=== PATIENT | male | born 1935 | race Caucasian/White ===

== ENCOUNTER 2017-06-15 11:07 | Inpatient (IN) ==
--- NOTE | 2017-06-15 11:23 | Emergency Department Note ---
Disposition Clinical Impression: COPD exacerbation, Wheezing, Elevated troponin, Hypoxia Dyspnea Qualifiers: Dyspnea type: unspecified Qualified Code(s): R06.00 - Dyspnea, unspecified Acute renal failure Qualifiers: Acute renal failure type: unspecified Qualified Code(s): N17.9 - Acute kidney failure, unspecified Disposition: Admitted As Inpatient Condition: Fair Referrals: Sujata Duffy DO [Primary Care Provider] - Forms: ED Satisfaction Letter Time of Disposition: 13:47 SOB HPI - General Chief Complaint: ED Shortness of Breath/Dyspnea Stated Complaint: SUNITA Time Seen by Provider: 06/15/17 11:12 Source: patient Mode of arrival: ambulatory Limitations: no limitations Nursing Notes Reviewed: Yes Vital Signs Reviewed: Yes - History of Present Illness Patient is an 82-year-old male with past medical history of COPD, CHF, A. fib, hypertension, hyperlipidemia. He presents today via EMS due to shortness of breath. He says he has felt short of breath for the past one to 2 days. He has required oxygen use at home to keep his saturation above 90%. He stated that at home, his oxygen saturation was 88%. EMS also confirmed that his oxygen saturation was 88% upon arrival when they were called for respiratory distress. The patient states that his shortness of breath is worse with exertion. Denies any chest pain. Denies any nausea, vomiting, sweating, abdominal pain. He does admit to cough above baseline, productive with yellow sputum. He was given one breathing treatment via EMS on the way in. He says that he feels like he is breathing somewhat better. He is currently requiring 2 L nasal cannula oxygen to maintain saturation in the 90s. - Related Data Home Medications Medication Instructions Recorded Confirmed Aspirin 81 mg PO DAILY 06/15/15 08/21/16 Clopidogrel [Plavix] 75 mg PO DAILY 06/15/15 08/21/16 Fluticasone Propionate Nasal 1 spray NS DAILY 06/15/15 08/21/16 [Flonase] Pantoprazole Sodium [Protonix] 40 mg PO DAILY 06/15/15 08/21/16 Spironolactone [Aldactone] 25 mg PO DAILY 06/15/15 08/21/16 Tiotropium [Spiriva] 18 mcg IH DAILY 06/15/15 08/21/16 Polyethylene Glycol 3350 [MiraLAX] 17 gm PO DAILY PRN 09/05/15 08/21/16 Atorvastatin Calcium [Lipitor] 80 mg PO DAILY 06/09/16 08/21/16 Fluticasone/Salmeterol [Advair Hfa 2 puff IH BID 06/09/16 08/21/16 230-21 Mcg Inhaler] Metoprolol Succinate 200 mg PO DAILY #0 06/09/16 08/21/16 Tamsulosin [Flomax] 0.4 mg PO BID 06/09/16 08/21/16 Guaifenesin [Mucinex] 600 mg PO Q12H PRN 06/10/16 08/21/16 Na Phos,M-B/Na Phos,Di-Ba [Fleet 230 ml RC Q48H PRN 06/27/16 08/21/16 Enema Extra] Previous Rx's Medication Instructions Recorded Multivit/Ca/Min/Fe/FA [Thera M 1 tab PO DAILY tablet 09/08/15 Plus] Albuterol Neb [Proventil Neb] 2.5 mg IH Q4HR 30 Days vial.neb 08/25/16 HYDROcodone/Acet 5/325 mg [[place] 1 tab PO Q6H PRN #15 tablet 08/25/16 5-325 mg] Isosorbide MONOnitrate (24 HR) 30 mg PO DAILY 30 Days tab.er.24h 08/25/16 [Imdur] Levofloxacin [Levaquin] 750 mg PO DAILY #6 tablet 08/25/16 Lisinopril 2.5 mg PO DAILY 30 Days tablet 08/25/16 Allergies Allergy/AdvReac Type Severity Reaction Status Date / Time No Known Allergies Allergy Verified 08/21/16 11:18 All systems ED: reviewed and negative except as stated. Constitutional: Denies: fever Cardiovascular: Denies: chest pain, palpitations Respiratory: Reports: cough, dyspnea, wheezes, sputum production Gastrointestinal: Denies: abdominal pain, nausea, vomiting, diarrhea Neurological: Denies: weakness, numbness, paresthesias Past Medical History - Past Medical History Attestation: Yes The following information was validated with the patient. Source: patient Medical history: Reports: asthma, atrial fibrillation, cardiomyopathy, CHF, COPD , coronary artery disease, GERD, GI bleed, hyperlipidemia, hypertension, myocardial infarction, valvular heart disease (S/P TAVR) Surgical history: Reports: angioplasty/stent, coronary bypass (CABG), pacemaker/ AICD (ICD), other (Right AKA 1993) Psychiatric history: Reports: no psych history - Social History Smoking Status: Former smoker Smokeless Tobacco Status: No Alcohol use: Reports: none Drug use: Reports: none Physical Exam - General Limitations: no limitations General appearance: alert, in no apparent distress - Head Head exam: atraumatic, normocephalic, normal inspection - Eye Eye exam: Present: normal appearance, PERRL, EOMI - ENT ENT exam: normal exam, normal oropharynx, mucous membranes moist - Neck Neck exam: Present: normal inspection, full ROM, trachea midline - Chest Chest inspection: Present: normal inspection, symmetric chest wall rise - Respiratory Respiratory exam: Present: wheezes (wheeze and crackles of bilateral LL) - Cardiovascular Cardiovascular exam: Present: regular rate, normal rhythm, normal heart sounds - Abdominal Exam Abdominal exam: Present: soft, Non-Tender. Absent: tenderness, distention, guarding, rebound, rigidity - Extremities Exam Extremities exam: Present: full ROM, other (right AKA amputation). Absent: tenderness, pedal edema - Neurological Exam Neurological exam: Present: alert, oriented X3 - Psychiatric Psychiatric exam: Present: normal affect, normal mood - Skin Skin exam: Present: warm, dry, intact, normal color Course Course Narrative: Vitals WNL on 2L NC oxygen. Mildly labored breathing, wheezes and crackles bilateral LL. Heart RRR. Abdomen soft, nontender. No edema of LLE. RLE AKA. WIll give the patient duonebs and solumedrol, will obtain EKG, CXR, trop, basic labs. 12:45 EKG showed paced rhythm with no acute ST changes. Troponin level was elevated at 0.04. However, this is the lowest that the patient has had in past several visits according to most recent records. No active chest pain. We will give patient aspirin, however, I do not think that any ACS is occurring at this time. CBC shows chronic anemia. His creatinine is 3.23, up from 0.99 in august last year. Mildly hyperkalemic at 5.5. Chest x-ray shows cardiomegaly but otherwise no other acute abnormalities. Patient typically feels improved after breathing treatments but is still having some wheezing and mild dyspnea. We will admit the patient for COPD exacerbation, acute renal failure, elevated trop. Will also give azithromycin for COPD exacerbation. Chest X-Ray 06/15/17 11:25 IMPRESSION: Cardiomegaly. Otherwise, no acute abnormalities are seen in the chest D/ / Kevin Mabry MD / Kevin Mabry MD Interpreting Provider: Kevin Mabry MD Vital Signs Temperature 98.3 F 06/15/17 11:09 Pulse Rate 65 06/15/17 11:09 Respiratory Rate 22 06/15/17 11:09 Blood Pressure 120/83 06/15/17 11:09 O2 Sat by Pulse Oximetry 96 06/15/17 11:09 Temperature 98.3 F 06/15/17 11:09 Pulse Rate 65 06/15/17 11:09 Respiratory Rate 20 06/15/17 11:55 Blood Pressure 120/83 06/15/17 11:09 O2 Sat by Pulse Oximetry 96 06/15/17 11:55 Oxygen Delivery Oxygen Delivery Nasal Cannula Shortness of Breath/Dyspnea - MDM Narrative Medical decision making narrative: EKG showed paced rhythm with no acute ST changes. Troponin level was elevated at 0.04. However, this is the lowest that the patient has had in past several visits according to most recent records. No active chest pain. We will give patient aspirin, however, I do not think that any ACS is occurring at this time. CBC shows chronic anemia. His creatinine is 3.23, up from 0.99 in august last year. WIll start 1L NS bolus. Mildly hyperkalemic at 5.5. Chest x-ray shows cardiomegaly but otherwise no other acute abnormalities. Patient typically feels improved after breathing treatments but is still having some wheezing and mild dyspnea. We will admit the patient for COPD exacerbation , acute renal failure, elevated trop. WIll also give azithromycin for COPD exac. - Medical Records Medical records reviewed: Yes I reviewed the patient's medical records. - Lab Data Lab results reviewed: Yes I reviewed the patient's lab results. Result diagrams: 06/15/17 11:33 06/15/17 11:33 Lab Results 06/15/17 06/15/17 06/15/17 Range/Units 11:33 11:33 11:33 WBC 9.2 (4.3-11.1) K/mcL RBC 3.42 L (4.19-5.50) M/mcL Hgb 9.8 L (12.9-16.9) g/dL Hct 31.9 L (37.5-50.1) % MCV 93.3 (83.0-100.0) fL MCH 28.7 (28.0-33.3) pg MCHC 30.7 L (31.6-35.5) g/dL RDW 14.0 (11.5-14.5) % Plt Count 187 (140-400) K/mcL MPV 9.4 (9.4-12.4) fL Immature Gran % 0.2 (0-4) % Seg Neutrophils % 77.2 % Lymphocytes % 14.5 % Monocytes % 5.8 % Eosinophils % 1.3 % Basophils % 1.0 % Neutrophils # 7.1 (1.6-8.9) K/mcL Lymphocytes # 1.3 (0.6-4.6) K/mcL Monocytes # 0.5 (0.0-1.3) K/mcL Eosinophils # 0.1 (0.0-0.6) K/mcL Basophils # 0.1 (0.0-0.2) K/mcL Sodium 136 (136-145) mEq/L Potassium 5.5 H (3.5-4.5) mEq/L Chloride 97 L (98-109) mEq/L Carbon Dioxide 30 H (19-29) mEq/L BUN 39 H (8-26) mg/dL Creatinine 3.23 H (0.72-1.25) mg/dL Est GFR ( Amer) 23 L (> 60) Est GFR (Non-Af Amer) 19 L (> 60) BUN/Creatinine Ratio 12 (6-26) Glucose 95 (70-99) mg/dL Calculated Osmolality 291 (280-300) Lactic Acid 1.6 (0.5-2.2) mmol/L Calcium 9.4 (8.6-10.8) mg/dL Troponin I (0-0.03) ng/mL B-Natriuretic Peptide (0-100) pg/mL 06/15/17 06/15/17 Range/Units 11:33 11:33 WBC (4.3-11.1) K/mcL RBC (4.19-5.50) M/mcL Hgb (12.9-16.9) g/dL Hct (37.5-50.1) % MCV (83.0-100.0) fL MCH (28.0-33.3) pg MCHC (31.6-35.5) g/dL RDW (11.5-14.5) % Plt Count (140-400) K/mcL MPV (9.4-12.4) fL Immature Gran % (0-4) % Seg Neutrophils % % Lymphocytes % % Monocytes % % Eosinophils % % Basophils % % Neutrophils # (1.6-8.9) K/mcL Lymphocytes # (0.6-4.6) K/mcL Monocytes # (0.0-1.3) K/mcL Eosinophils # (0.0-0.6) K/mcL Basophils # (0.0-0.2) K/mcL Sodium (136-145) mEq/L Potassium (3.5-4.5) mEq/L Chloride (98-109) mEq/L Carbon Dioxide (19-29) mEq/L BUN (8-26) mg/dL Creatinine (0.72-1.25) mg/dL Est GFR ( Amer) (> 60) Est GFR (Non-Af Amer) (> 60) BUN/Creatinine Ratio (6-26) Glucose (70-99) mg/dL Calculated Osmolality (280-300) Lactic Acid (0.5-2.2) mmol/L Calcium (8.6-10.8) mg/dL Troponin I 0.04 H* (0-0.03) ng/mL B-Natriuretic Peptide 296 H (0-100) pg/mL - Radiology Data Radiology results reviewed: Yes I reviewed the patient's radiology results. Chest X-Ray 06/15/17 11:25 IMPRESSION: Cardiomegaly. Otherwise, no acute abnormalities are seen in the chest D/ / Kevin Mabry MD / Kevin Mabry MD Interpreting Provider: Kevin Mabry MD - EKG Data EKG attestation: Yes I reviewed and interpreted this EKG. EKG results narrative: 06/15/2017 at 11:32. Paced rhythm. Rate 65. NC 232. QRS 155. QTc 470. No acute ST elevation or depression. Yan - Yan Situation: Demographics, MOA Background: Presenting Complaint, Relevant PMH, Meds, & Allergies Assessment: Vital Signs, Course and respsone to treatment, Exam Concerns, Patient/Family Expectation, Pertinant Lab Results Recommendation: Barrier(s) to disposition, Recommendation based on pending studies, treatments, or consults S.B.Trores Report Given to: Beny Heredia Repor Time: 13:46
[2017-06-15] MEDS ORDERED: Ipratropium/Albuterol Neb 3 ML IH ONE (11:25)
[2017-06-15] MEDS ORDERED: methylPREDNISolone 125 MG/2 ML VIAL IVP ONE (11:25)
[2017-06-15 11:39] LABS: Basophils # 0.1 K/mcL (0.0-0.2); Eosinophils # 0.1 K/mcL (0.0-0.6); Eosinophils % 1.3 %; Hematocrit 31.9 % (37.5-50.1); Hemoglobin 9.8 g/dL (12.9-16.9); Immature Granulocytes % 0.2 % (0-4); Lymphocytes # 1.3 K/mcL (0.6-4.6); Lymphocytes % 14.5 %; Mean Corpuscular HGB Conc 30.7 g/dL (31.6-35.5); Mean Corpuscular Hemoglobin 28.7 pg (28.0-33.3); Mean Corpuscular Volume 93.3 fL (83.0-100.0); Mean Platelet Volume 9.4 fL (9.4-12.4); Monocytes # 0.5 K/mcL (0.0-1.3); Monocytes % 5.8 %; Neutrophils # 7.1 K/mcL (1.6-8.9); Platelet Count 187 K/mcL (140-400); Red Blood Count 3.42 M/mcL (4.19-5.50); Segmented Neutrophils % 77.2 %
--- NOTE | 2017-06-15 11:46 | Emergency Department Note ---
START Narrative - START START: I examined this patient and my medical decision-making was reviewed with the Resident Physician. I agree with the documented findings, disposition and treatment plan as described except to the extent set forth below. 82-year-old male presents to the ER with shortness of breath. He does wear home oxygen. Does do home nebulizer treatments. States he is just been feeling more short of breath. Denies any chest pain to me. We will do a dyspnea and cardiac workup in the ER.
[2017-06-15 11:51] LABS: Calcium 9.4 mg/dL (8.6-10.8); Potassium 5.5 mEq/L (3.5-4.5)
[2017-06-15] MEDS ORDERED: 0.9 % Sodium Chloride 1,000 ML IVC ONE (12:50)
[2017-06-15] MEDS ORDERED: Azithromycin 500 MG in D5% in Water 250 ML IVPB ONE (12:50)
[2017-06-15] MEDS ORDERED: Aspirin 325 MG TABLET PO ONE (12:58)
[2017-06-15] MEDS ORDERED: 0.9 % Sodium Chloride 1,000 ML IVC SCH (14:15)
[2017-06-15] MEDS ORDERED: Naloxone 0.4 MG/ML INJ IVP PRN (14:15)
--- NOTE | 2017-06-15 14:46 | Internal Med History&Physical ---
<Swan,Florecita J - Last Filed: 06/15/17 15:58> Date of Encounter: 06/15/17 Time of Encounter: 14:45 Assessment and Plan (1) Pneumonia, organism unspecified Current visit: Yes Status: Acute Mr. Swartz is a 82 year old male with PMH COPD, CAD HTN, CHF, atrial fibrillation who presented to [facility] on 06/15/2017 with complaints of shortness of breath. He was found to have suspected pneumonia and worsening renal function, therefore, he was placed in observation status for IV ATB and further work-up and treatment. Pneumonia due to unspecified organism: suspected. Presented with worsening SOB for one week prior to presentation. CXR with cardiomegaly, otherwise non-acute. BNP 300, clinically appears to be pneumonia with rhonchorous lung sounds, productive cough and objective fevers. Change ATB to Levaquin. Sputum cx, urinary antigens, respiratory PCR pending. (2) Acute and chronic respiratory failure with hypoxia Current visit: No Status: Acute wears O2 at HS at home. Was hypoxic on arrival and now wearing oxygen around the clock at home. Secondary to pneumonia and underlying COPD. Treat underlying causes. Wean O2 to home dose as able. (3) Acute kidney injury superimposed on chronic kidney disease Current visit: No Status: Acute Cr 3.3; baseline appears to be 1.2-1.3. Holding home FRANCISCO, diuretics. Received IV fluids in the ED. Hold on further fluids at this time. UA, renal US pending (4) Atrial fibrillation Current visit: No Status: Chronic hx PAF. ED EKG with paced rhythm. Cont home amiodarone, no anticoagulation due to previous GI bleed. Qualifiers: Atrial fibrillation type: paroxysmal Qualified Code(s): I48.0 - Paroxysmal atrial fibrillation (5) Chronic systolic (congestive) heart failure Current visit: Yes Status: Acute per hx. 08/2016 with EF 35%. Does not appear overloaded on exam. BNP 300, CXR with cardiomegaly. Received IV fluids in ED, hold on further fluids. Monitor fluids status closely while holding laix. Repeat echo pending. (6) CAD (coronary artery disease) Current visit: No Status: Chronic Qualifiers: Coronary Disease-Associated Artery/Lesion type: unspecified vessel or lesion type [place] vs. transplanted heart: [place] heart Associated angina: without angina Qualified Code(s): I25.10 - Atherosclerotic heart disease of [place] coronary artery without angina pectoris (7) DVT prophylaxis Current visit: No Status: Acute heparin Internal Medicine - H&P: HPI Chief complaint: shortness of breath Admitted From: Home Plans for Post Hospital Care: Home History of present illness: Mr. Swartz is a 82 year old male with PMH COPD, CAD HTN, CHF, atrial fibrillation who presented to [facility] on 06/15/2017 with complaints of shortness of breath. He was found to have suspected pneumonia and worsening renal function, therefore, he was placed in observation status for IV ATB and further work-up and treatment. Information obtained from chart review and patient report. Patient says he has been more SOB over the last week or so. Says he can only walk a few steps before he has to stop and catch breath. Nothing makes breathing better or worse. He denies chest pain. Says he has been taking his Lasix at home. Past Med Surg Social Fam HX - Past Medical History Medical history: asthma, atrial fibrillation, cardiomyopathy, CHF, COPD, coronary artery disease, GERD, GI bleed, hyperlipidemia, hypertension, myocardial infarction, valvular heart disease (S/P TAVR) Psychiatric history: no psych history - Past Surgical History Surgical History: angioplasty/stent, coronary bypass (CABG), pacemaker/AICD (ICD ), other (Right AKA 1993) - Social History Smoking Status: Former smoker Smokeless Tobacco Status: No Alcohol use: none Drug use: none - Family History Mother Living Status: Hx Family Cardiac Disorders: Yes Hx Family Respiratory Disorders: No Hx Family Cancer: Yes (father Hodgkins) Internal Medicine - H&P: Meds Aspirin 81 mg PO DAILY 06/15/15 [History] Clopidogrel [Plavix] 75 mg PO DAILY 06/15/15 [History] Fluticasone Propionate Nasal [Flonase] 1 spray NS DAILY 06/15/15 [History] Pantoprazole Sodium [Protonix] 40 mg PO DAILY 06/15/15 [History] Spironolactone [Aldactone] 25 mg PO DAILY 06/15/15 [History] Tiotropium [Spiriva] 18 mcg IH DAILY 06/15/15 [History] Polyethylene Glycol 3350 [MiraLAX] 17 gm PO DAILY PRN 09/05/15 [History] Multivit/Ca/Min/Fe/FA [Thera M Plus] 1 tab PO DAILY tablet 09/08/15 [Rx] Atorvastatin Calcium [Lipitor] 80 mg PO DAILY 06/09/16 [History] Fluticasone/Salmeterol [Advair Hfa 230-21 Mcg Inhaler] 2 puff IH BID 06/09/16 [ History] Metoprolol Succinate 200 mg PO DAILY #0 06/09/16 [History] Tamsulosin [Flomax] 0.4 mg PO BID 06/09/16 [History] Na Phos,M-B/Na Phos,Di-Ba [Fleet Enema Extra] 230 ml RC Q48H PRN 06/27/16 [ History] Albuterol Neb [Proventil Neb] 2.5 mg IH Q4HR 30 Days vial.neb 08/25/16 [Rx] Amiodarone [Cordarone] 200 mg PO 06/15/17 [History] Budesonide/Formoterol 80/4.5 [Symbicort 80/4.5] 0 gm IH BIDR 06/15/17 [History] Furosemide [Lasix] 40 mg PO BID 06/15/17 [History] Isosorbide MONOnitrate (24 HR) [Imdur] 60 mg PO DAILY 06/15/17 [History] Lisinopril [Zestril] 10 mg PO DAILY 06/15/17 [History] Meloxicam [Mobic] 7.5 mg PO DAILY 06/15/17 [History] Potassium Chloride [K-Tab ER] 20 meq PO DAILY 06/15/17 [History] 3 Allergy/AdvReac Type Severity Reaction Status Date / Time No Known Allergies Allergy Verified 08/21/16 11:18 All Systems PM: A 10-system review of systems was performed and is negative for pertinent findings except as documented above in the HPI. - Constitutional Constitutional: weakness, no chills, no fever(s), no night sweats - EENT Eyes: no change in vision, no discharge, no pain, no photophobia Ears: no ear discharge, no ear pain, no tinnitus Nose, mouth and throat: no dysphagia, no nasal discharge, no neck pain, no sore throat - Cardiovascular Cardiovascular ROS IM: dyspnea, dyspnea on exertion, orthopnea, no chest pain, no diaphoresis, no lightheadedness, no palpitations, no syncope - Respiratory Respiratory: cough, dyspnea, wheezing, no excessive phlegm production - Gastrointestinal Gastrointestinal: no abdominal pain, no diarrhea, no hematemesis, no hematochezia, no melena, no nausea, no vomiting - Musculoskeletal Musculoskeletal ROS IM: no numbness, no tingling - Integumentary Integumentary IM: no rash, no unusual bruising - Neurological Neurological ROS: no confusion, no convulsions, no focal weakness, no numbness, no tingling, no tremor(s) - Hematologic/Lymphatic Hematologic/Lymphatic: no easy bruising - Constitutional Vitals: Temp Pulse Resp BP Pulse Ox 0 F L 68 18 124/62 96 06/15/17 14:36 06/15/17 13:54 06/15/17 14:36 06/15/17 14:36 06/15/17 13:54 General appearance: Present: A&O X 3, obese - Head Head exam: Present: atraumatic, normocephalic - Eye Eye exam: Present: PERRL, conjuntiva pink, sclera anicteric Pupils: Present: PERRL - Neck Neck exam general surgery: Present: supple, trachea midline. Absent: lymphadenopathy - Respiratory Respiratory exam: Present: rales, rhonchi. Absent: accessory muscle use, wheezes - Cardiovascular Cardiovascular exam: Present: irregular rhythm, RRR, +S1, +S2. Absent: diastolic murmur, gallop, rubs, systolic murmur - GI/Abdominal GI/Abdominal exam: Present: normal bowel sounds, soft, no peritoneal signs. Absent: distended, tenderness - Extremities Exam Extremities exam: Present: warm, radial pulses palpable and symmetrical. Absent : calf tenderness, cyanotic, pedal edema - Neurological Exam Neurological exam: Present: CN II-XII intact, oriented X3, no focal deficits. Absent: pronater drift, facial droop, speech deficit - Skin Skin exam: Present: dry, intact Internal Med - H&P Results - Labs CBC & Chem 7: 06/15/17 11:33 06/15/17 11:33 <Maxwell Cunningham - Last Filed: 06/15/17 19:51> Date of Encounter: 06/15/17 Internal Medicine - H&P: HPI History of present illness: Mr. Swartz is a 82 year old male All Systems PM: A 10-system review of systems was performed and is negative for pertinent findings except as documented above in the HPI. - Constitutional Vitals: Temp Pulse Resp BP Pulse Ox 98.1 F 67 16 126/64 95 06/15/17 18:47 06/15/17 18:47 06/15/17 18:47 06/15/17 18:47 06/15/17 18:47 Internal Med - H&P Results - Labs CBC & Chem 7: 06/15/17 11:33 06/15/17 11:33 - Attending Attestation I independently obtained history and examined this patient and my medical decision-making was reviewed with the nurse practitioner. I agree with the documented findings, disposition and treatment plan as described. My findings are summarized below: Is in no acute distress awake alert and oriented. Heart is regular, lung exam reveals bilateral expiratory wheezes. Extremity exam with right [id number] amputation. Plan: We will treat him with IV fluids, IV Levaquin for pneumonia intravenous steroids and inhaled bronchodilators for COPD exacerbation. He is severely short of breath with minimal exertion. He also has signs of acute renal failure with hyperkalemia and required treatment in the hospital for at least 3 days.
[2017-06-15] MEDS ORDERED: Levofloxacin 750 MG/150 ML 750 MG/150 ML BAG IVPB SCH (15:00)
[2017-06-15 15:15] LABS: Bilirubin,Urine Negative (Negative); Blood,Urine Negative (Negative); Clarity,Urine Clear (Clear); Color,Urine Yellow (Yellow); Glucose,Urine (UA) Normal (Normal); Ketones,Urine Negative (Negative); Leukocyte Esterase,Urine Negative (Negative); Nitrite,Urine Negative (Negative); Protein,Urine Negative (Neg-Trace); Specific Gravity,Urine 1.012 (1.010-1.025); Urobilinogen,Urine Normal (Normal)
[2017-06-15] MEDS ORDERED: Levofloxacin 750 MG/150 ML 750 MG/150 ML BAG IVPB ONE (15:45)
[2017-06-15] MEDS: MethylPREDNISolone 40 MG/ML VIAL IVP SCH (16:25)
[2017-06-15] MEDS ORDERED: Perflutren Lipid Microsphere 1.3 ML in 0.9 % Sodium Chloride 8.7 ML IVP ONE (16:35)
[2017-06-15] MEDS ORDERED: Acetaminophen 325 MG TABLET PO ONE (17:01)
--- NOTE | 2017-06-15 17:10 | Electrocardiograph Report ---
[place] [id number] Test Date: 2017-06-15 Pat Name: Edilson Swartz Department: 102 Room: 3B Gender: M [place] [employer]: Am : 1935 Requested By: Neeraj Gupta Order Number: [id number] Reading MD: Karlee Cummins Measurements Intervals [place] Rate: 65 P: -32 MO: 232 QRS: -28 QRSD: 155 T: 129 QT: 458 QTc: 470 Interpretive Statements ELECTRONIC VENTRICULAR PACEMAKER UNCLEAR UNDERLYING RHYTHM Electronically Signed On 06-15-2017 17:08:27 EDT by Karlee Cummins
[2017-06-15] MEDS ORDERED: *HR* Heparin 5,000 UNIT/ML VIAL SQ SCH (22:00)
[2017-06-16] MEDS: MethylPREDNISolone 40 MG/ML VIAL IVP SCH ×3 (00:41→13:09)
[2017-06-16] MEDS: *HR* Heparin 5,000 UNIT/ML VIAL SQ SCH ×2 (06:23→17:17)
[2017-06-16 06:42] LABS: Albumin 3.7 g/dL (3.5-5.0); Albumin/Globulin Ratio 1.2 (1.1-2.2); Bilirubin,Total 0.8 mg/dL (0.2-1.2); Calcium 9.6 mg/dL (8.6-10.8); Globulin 3.2 g/dL (2.4-3.5); Potassium 5.9 mEq/L (3.5-4.5); Total Protein 6.9 g/dL (6.0-8.3)
[2017-06-16 06:57] LABS: Hematocrit 30.1 % (37.5-50.1); Hemoglobin 9.6 g/dL (12.9-16.9); Mean Corpuscular HGB Conc 31.9 g/dL (31.6-35.5); Mean Corpuscular Hemoglobin 29.5 pg (28.0-33.3); Mean Corpuscular Volume 92.6 fL (83.0-100.0); Mean Platelet Volume 10.3 fL (9.4-12.4); Platelet Count 167 K/mcL (140-400); Red Blood Count 3.25 M/mcL (4.19-5.50); Red Cell Distribution Width 13.9 % (11.5-14.5)
[2017-06-16] MEDS: Isosorbide MONOnitrate (24 HR) 60 MG TAB.ER.24H PO SCH (08:10)
[2017-06-16] MEDS: Metoprolol XL (24 HR) Succ 50 MG TAB.ER.24H PO SCH (08:10)
[2017-06-16] MEDS: Aspirin 81 MG TAB.CHEW PO SCH (08:10)
[2017-06-16] MEDS: Tiotropium 18 MCG inhalation IH SCH (10:48)
--- NOTE | 2017-06-16 14:57 | Internal Med Progress Note ---
Date of Encounter: 06/16/17 Time of Encounter: 09:00 - Assessment and plan (1) Pneumonia, organism unspecified Current Visit: Yes Status: Acute Assessment and plan: On levofloxacin. Moderate risk for complications. Continue O2 supplementation. Sputum culture ordered but patient is not making much sputum at this time. (2) Acute and chronic respiratory failure with hypoxia Current Visit: Yes Status: Acute Assessment and plan: Due to pneumonia. Continue O2 supplementation and wean FiO2 as tolerated. Currently on 2 L nasal cannula. (3) Acute kidney injury superimposed on chronic kidney disease Current Visit: Yes Status: Acute Assessment and plan: Creatinine slightly improved. BUN remains elevated. Renal ultrasound is unremarkable. No hydronephrosis noted. We will continue to hold diuretics. Continue to monitor renal function closely. Continue gentle hydration. (4) Atrial fibrillation Current Visit: Yes Status: Chronic Assessment and plan: Rate controlled. Patient is not on long-term anticoagulation due to previous GI bleed. He is on 81 mg aspirin. Qualifiers: Atrial fibrillation type: paroxysmal Qualified Code(s): I48.0 - Paroxysmal atrial fibrillation (5) CAD (coronary artery disease) Current Visit: Yes Status: Chronic Assessment and plan: No chest pain. Continue aspirin and statin and Plavix. Qualifiers: Coronary Disease-Associated Artery/Lesion type: unspecified vessel or lesion type [place] vs. transplanted heart: [place] heart Associated angina: without angina Qualified Code(s): I25.10 - Atherosclerotic heart disease of [place] coronary artery without angina pectoris (6) Chronic systolic (congestive) heart failure Current Visit: Yes Status: Chronic Assessment and plan: 2-D echo done today shows EF of 30% with severe LV diastolic dysfunction and global hypokinesis with mild left ventricular diastolic dysfunction. Currently Lasix is on hold due to worsening renal function. We will may resume once renal function improves. Patient does not appear to be decompensated at this time (7) COPD (chronic obstructive pulmonary disease) Current Visit: Yes Status: Chronic Assessment and plan: Not tender acute exacerbation. Will place patient on bronchodilators as needed. Qualifiers: COPD type: emphysema Emphysema type: unspecified Qualified Code(s): J43.9 - Emphysema, unspecified (8) DVT prophylaxis Current Visit: No Status: Acute Assessment and plan: With subcutaneous heparin - Subjective Interval history: Patient is awake and alert. Feels better compared to yesterday. Still has shortness of breath. He is able to ambulate to and fro from bathroom with slight difficulty. Denies any fever or chills. No chest pain. - Constitutional Vitals: Temp Pulse Resp BP Pulse Ox 98.1 F 66 17 126/59 97 06/16/17 11:35 06/16/17 11:35 06/16/17 11:35 06/16/17 11:35 06/16/17 11:35 General appearance: Present: cooperative, A&O X 3, obese, answers questions appropriately - Respiratory Respiratory exam: Present: CTAB. Absent: accessory muscle use, rales, rhonchi, wheezes - Cardiovascular Cardiovascular exam: Present: RRR, +S1, +S2. Absent: diastolic murmur, gallop, rubs, systolic murmur - GI/Abdominal GI/Abdominal exam: Present: normal bowel sounds, soft, no peritoneal signs. Absent: distended, tenderness - Extremities Exam Extremities exam: Present: warm, radial pulses palpable and symmetrical. Absent : calf tenderness, cyanotic, pedal edema - Neurological Exam Neurological exam: Present: alert, oriented X3, no focal deficits. Absent: facial droop, speech deficit Internal Medicine: Result - Labs CBC & Chem 7: 06/16/17 05:44 06/16/17 05:44 Labs: Short CBC 06/16/17 Range/Units 05:44 WBC 8.9 (4.3-11.1) K/mcL Hgb 9.6 L (12.9-16.9) g/dL Hct 30.1 L (37.5-50.1) % Plt Count 167 (140-400) K/mcL BMP 06/16/17 05:44 Sodium 134 L Potassium 5.9 H Chloride 99 Carbon Dioxide 26 BUN 44 H Creatinine 3.19 H Glucose 120 H Calcium 9.6 Liver Function 06/16/17 Range/Units 05:44 Total Bilirubin 0.8 (0.2-1.2) mg/dL AST 17 (5-34) Units/L ALT 18 (0-55) Units/L Alkaline Phosphatase 62 (38-126) Units/L Albumin 3.7 (3.5-5.0) g/dL Consult Discharge Plan - Plan Referrals: Sujata Duffy DO [Primary Care Provider] -
[2017-06-16] MEDS ORDERED: Ipratropium/Albuterol Neb 3 ML IH PRN (15:05)
[2017-06-16] MEDS ORDERED: 0.9 % Sodium Chloride 1,000 ML IVC SCH (15:15)
[2017-06-16] MEDS: *HR* Amiodarone 200 MG TABLET PO SCH (15:57)
--- NOTE | 2017-06-16 23:27 | Event Note ---
Date of Encounter: 06/16/17 Time of Encounter: 23:05 Rapid response called overhead because patient fell out of bed and was found sitting on the floor. He is A&O to person, place and year and reports trying to use his walker to get to the bathroom. Patient has prior right AKA. He does not recall hitting his head or loosing consciousness. Patient was sitting on the floor at the foot of the bed and there is a small pool of blood on the floor where his IV got ripped out when he fell. Patient was transferred from the floor back to his bed with assistance. On exam, patient has no further visible bleeding or any skin lacerations, head is normocephalic/ atraumatic, neck is non -tender, and he has no visible injuries to remaining upper extremities, left foot, or right lower extremity stump. Will order CT brain to r/o intracranial bleed s/p fall, obtain new IV access, and move patient closer to the nurses station for closer monitoring. Patient educated not to get out of bed without assistance.
[2017-06-17 05:40] LABS: Basophils % 0.1 %; Hematocrit 29.3 % (37.5-50.1); Hemoglobin 9.2 g/dL (12.9-16.9); Immature Granulocytes % 0.6 % (0-4); Lymphocytes # 1.1 K/mcL (0.6-4.6); Lymphocytes % 10.4 %; Mean Corpuscular HGB Conc 31.4 g/dL (31.6-35.5); Mean Corpuscular Hemoglobin 29.2 pg (28.0-33.3); Mean Platelet Volume 10.2 fL (9.4-12.4); Monocytes # 0.7 K/mcL (0.0-1.3); Monocytes % 6.3 %; Neutrophils # 8.9 K/mcL (1.6-8.9); Platelet Count 184 K/mcL (140-400); Red Blood Count 3.15 M/mcL (4.19-5.50); Red Cell Distribution Width 13.9 % (11.5-14.5); Segmented Neutrophils % 82.6 %
[2017-06-17] MEDS: *HR* Heparin 5,000 UNIT/ML VIAL SQ SCH ×2 (05:52→17:33)
[2017-06-17 05:55] LABS: Albumin 3.6 g/dL (3.5-5.0); Albumin/Globulin Ratio 1.2 (1.1-2.2); Bilirubin,Total 0.5 mg/dL (0.2-1.2); Calcium 9.2 mg/dL (8.6-10.8); Globulin 3.1 g/dL (2.4-3.5); Potassium 5.6 mEq/L (3.5-4.5); Total Protein 6.7 g/dL (6.0-8.3)
[2017-06-17] MEDS: Tiotropium 18 MCG inhalation IH SCH (07:57)
[2017-06-17] MEDS: Metoprolol XL (24 HR) Succ 50 MG TAB.ER.24H PO SCH (09:19)
[2017-06-17] MEDS: Isosorbide MONOnitrate (24 HR) 60 MG TAB.ER.24H PO SCH (09:28)
[2017-06-17] MEDS: Aspirin 81 MG TAB.CHEW PO SCH (09:28)
[2017-06-17] MEDS: *HR* Amiodarone 200 MG TABLET PO SCH (09:28)
--- NOTE | 2017-06-17 13:34 | Nephrology Consult Note ---
Date of Encounter: 06/17/17 Time of Encounter: 13:10 Assessment and Plan (1) Acute kidney injury Current Visit: No Status: Resolved AYE superimposed on CKD. Baseline creat 1.2-1.4 in setting of diuretics, possible NSAID;Meloxicam. Hyperkalemia 5.6. Recommend gentle hydration 0.9NS @ 75 cc/hr. Acute on chronic respiratory failure, on Levaquin. Renal US and UA negative. I&O, avoid nephrotoxins. Will continue to monitor. History of Present Illness - Reason for Consult Acute Kidney Injury - History of Present Illness Mr. Swartz is a 82 year old male who presented to ER on Jun 15 with shortness of breath who uses home oxygen and does home nebulizer treatments. Other PMH- COPD, CHF, A. fib, hypertension, hyperlipidemia. 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 CXR with cardiomegaly otherwise no acute process, however appeared clinically to have pneumonia with rhonchorous lung sounds and productive cough. Placed on Levaquin. Creat 3.3, held FRANCISCO and diuretics. K+ 5.5 home MAR Aldactone, FRANCISCO and K supplement, all stopped. It is noted on home MAR Meloxicam, however patient denies taking. Patient denies prior renal insufficiency, however prior labs show baseline creat 1.2-1.4 back to Oct 2014. Renal US and UA negative. Past Med Surg Social Fam HX - Past Medical History Medical history: asthma, atrial fibrillation, cardiomyopathy, CHF, COPD, coronary artery disease, GERD, GI bleed, hyperlipidemia, hypertension, myocardial infarction, valvular heart disease (S/P TAVR) Psychiatric history: no psych history - Past Surgical History Surgical History: angioplasty/stent, coronary bypass (CABG), pacemaker/AICD (ICD ), other (Right AKA 1993) - Social History Smoking Status: Former smoker Smokeless Tobacco Status: No Alcohol use: none Drug use: none - Family History Mother Living Status: Hx Family Cardiac Disorders: Yes Hx Family Respiratory Disorders: No Hx Family Cancer: Yes (father Hodgkins) Medications and Allergies Aspirin 81 mg PO DAILY 06/15/15 [History] Clopidogrel [Plavix] 75 mg PO DAILY 06/15/15 [History] Fluticasone Propionate Nasal [Flonase] 1 spray NS DAILY 06/15/15 [History] Pantoprazole Sodium [Protonix] 40 mg PO DAILY 06/15/15 [History] Spironolactone [Aldactone] 25 mg PO DAILY 06/15/15 [History] Tiotropium [Spiriva] 18 mcg IH DAILY 06/15/15 [History] Polyethylene Glycol 3350 [MiraLAX] 17 gm PO DAILY PRN 09/05/15 [History] Multivit/Ca/Min/Fe/FA [Thera M Plus] 1 tab PO DAILY tablet 09/08/15 [Rx] Atorvastatin Calcium [Lipitor] 80 mg PO DAILY 06/09/16 [History] Fluticasone/Salmeterol [Advair Hfa 230-21 Mcg Inhaler] 2 puff IH BID 06/09/16 [ History] Metoprolol Succinate 200 mg PO DAILY #0 06/09/16 [History] Tamsulosin [Flomax] 0.4 mg PO BID 06/09/16 [History] Na Phos,M-B/Na Phos,Di-Ba [Fleet Enema Extra] 230 ml RC Q48H PRN 06/27/16 [ History] Albuterol Neb [Proventil Neb] 2.5 mg IH Q4HR 30 Days vial.neb 08/25/16 [Rx] Amiodarone [Cordarone] 200 mg PO 06/15/17 [History] Budesonide/Formoterol 80/4.5 [Symbicort 80/4.5] 0 gm IH BIDR 06/15/17 [History] Furosemide [Lasix] 40 mg PO BID 06/15/17 [History] Isosorbide MONOnitrate (24 HR) [Imdur] 60 mg PO DAILY 06/15/17 [History] Lisinopril [Zestril] 10 mg PO DAILY 06/15/17 [History] Meloxicam [Mobic] 7.5 mg PO DAILY 06/15/17 [History] Potassium Chloride [K-Tab ER] 20 meq PO DAILY 06/15/17 [History] 3 Allergy/AdvReac Type Severity Reaction Status Date / Time No Known Allergies Allergy Verified 08/21/16 11:18 Review of Systems All Systems: reviewed and no additional remarkable complaints except as stated Exam - Vital Signs Vital signs: Initial Vital Signs Temp Pulse Resp BP Pulse Ox 98.3 F 65 22 120/83 96 06/15/17 11:09 06/15/17 11:09 06/15/17 11:09 06/15/17 11:09 06/15/17 11:09 Vital Signs - Last 8 Hours Temp Pulse Resp BP Pulse Ox 06/17/17 11:58 98.2 F 64 16 120/51 94 06/17/17 07:34 98.1 F 59 16 126/67 98 Intake and Output 06/16/17 06/17/17 06/17/17 23:59 07:59 15:59 Intake Total 360 / 360 Output Total 100 / 100 400 / 400 200 / 200 Balance -100 / -100 -400 / -400 160 / 160 Intake: Oral 360 / 360 Output: Urine 100 / 100 400 / 400 200 / 200 Other: Meal Breakfast Percent of Meal Consumed 100% Stool Size Moderate Stool Consistency soft Stool Color Brown # Bowel Movements 1 Weight 84.538 kg Patient Weight 06/17/17 23:59 Weight 84.538 kg - General Appearance General appearance: well-developed, well-nourished, appears started age, obese EENT: mucous membranes moist Neck: no JVD Respiratory: clear Additional Comments: diminished throughout Cardiology: no edema, irregular rhythm Additional Comments: right AKA Gastrointestinal: normoactive bowel sounds, no tenderness Integumentary: warm and dry Neurologic: alert and oriented x3 Psychiatric: mood/affect appropriate, cooperative Results - Lab Results 06/17/17 05:07 06/17/17 05:07 Most recent lab results Calcium 9.2 mg/dL (8.6-10.8) 06/17/17 05:07 Consult Discharge Plan - Plan Referrals: Sujata Duffy DO [Primary Care Provider] -
[2017-06-17] MEDS ORDERED: Levofloxacin 500 MG/100 ML 500 MG/100 ML BAG IVPB SCH (15:00)
--- NOTE | 2017-06-17 15:22 | Internal Med Progress Note ---
Date of Encounter: 06/17/17 Time of Encounter: 08:40 - Assessment and plan (1) Pneumonia, organism unspecified Current Visit: Yes Status: Acute Assessment and plan: Continue levofloxacin. Clinically, patient is getting better. On 2 L O2 supplementation which is his baseline. Cultures have been negative. (2) Acute and chronic respiratory failure with hypoxia Current Visit: Yes Status: Acute Assessment and plan: Continue O2 supplementation. (3) Acute kidney injury superimposed on chronic kidney disease Current Visit: Yes Status: Acute Assessment and plan: BUN continues to rise. Creatinine stable. Remains hyperkalemic. We will consult nephrology for their recommendations. (4) Atrial fibrillation Current Visit: Yes Status: Chronic Assessment and plan: Rate controlled. Not on anticoagulation due to prior GI bleed Qualifiers: Atrial fibrillation type: paroxysmal Qualified Code(s): I48.0 - Paroxysmal atrial fibrillation (5) CAD (coronary artery disease) Current Visit: Yes Status: Chronic Assessment and plan: No chest pain. Continue aspirin and statin and Plavix Qualifiers: Coronary Disease-Associated Artery/Lesion type: unspecified vessel or lesion type [place] vs. transplanted heart: [place] heart Associated angina: without angina Qualified Code(s): I25.10 - Atherosclerotic heart disease of [place] coronary artery without angina pectoris (6) Chronic systolic (congestive) heart failure Current Visit: Yes Status: Chronic Assessment and plan: No symptoms of acute heart failure. Lasix is currently on hold due to abnormal renal function. (7) COPD (chronic obstructive pulmonary disease) Current Visit: Yes Status: Chronic Assessment and plan: Continue bronchodilators as needed. Qualifiers: COPD type: emphysema Emphysema type: unspecified Qualified Code(s): J43.9 - Emphysema, unspecified (8) DVT prophylaxis Current Visit: No Status: Acute Assessment and plan: With subcutaneous heparin - Subjective Interval history: Patient is currently sitting up in bed. He is awake and alert. Tolerating breakfast. Patient had a fall last night after he tried to climb out from bed. This was not witnessed. No open wounds identified. CT scan of the head was done which did not show any acute bleed. He is presently doing much better. Denies any other complaints at this time. Denies any pain anywhere. No significant shortness of breath. - Constitutional Vitals: Temp Pulse Resp BP Pulse Ox 97.7 F 62 16 116/49 98 06/17/17 15:13 06/17/17 15:13 06/17/17 15:13 06/17/17 15:13 06/17/17 15:13 General appearance: Present: cooperative, A&O X 3, obese, answers questions appropriately - Neck Neck exam general surgery: Present: supple, trachea midline. Absent: lymphadenopathy - Respiratory Respiratory exam: Present: prolonged expiratory phase. Absent: accessory muscle use, rales, rhonchi, wheezes - Cardiovascular Cardiovascular exam: Present: RRR, +S1, +S2. Absent: diastolic murmur, gallop, rubs, systolic murmur - GI/Abdominal GI/Abdominal exam: Present: normal bowel sounds, soft, no peritoneal signs. Absent: distended, tenderness - Extremities Exam Extremities exam: Present: warm, radial pulses palpable and symmetrical. Absent : calf tenderness, cyanotic, pedal edema Additional comments: Status post right AKA - Neurological Exam Neurological exam: Present: oriented X3, no focal deficits. Absent: facial droop, speech deficit Internal Medicine: Result - Labs CBC & Chem 7: 06/17/17 05:07 06/17/17 05:07 Labs: Short CBC 06/17/17 Range/Units 05:07 WBC 10.8 (4.3-11.1) K/mcL Hgb 9.2 L (12.9-16.9) g/dL Hct 29.3 L (37.5-50.1) % Plt Count 184 (140-400) K/mcL Neutrophils # 8.9 (1.6-8.9) K/mcL BMP 06/16/17 06/17/17 15:14 05:07 Sodium 133 L Potassium 5.9 H 5.6 H Chloride 100 Carbon Dioxide 25 BUN 58 H D Creatinine 3.19 H Glucose 95 Calcium 9.2 Liver Function 06/17/17 Range/Units 05:07 Total Bilirubin 0.5 (0.2-1.2) mg/dL AST 20 (5-34) Units/L ALT 21 (0-55) Units/L Alkaline Phosphatase 57 (38-126) Units/L Albumin 3.6 (3.5-5.0) g/dL - Impressions Impressions Head CT 06/16/17 23:15 IMPRESSION: 1. No acute intracranial abnormality. 2. 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 3. 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 D/ / Solis Pathak MD / Solis Pathak MD Interpreting Provider: Solis Pathak MD Consult Discharge Plan - Plan Referrals: Sujata Duffy DO [Primary Care Provider] -
[2017-06-17] MEDS ORDERED: Acetaminophen 325 MG TABLET PO PRN (22:31)
[2017-06-18 05:06] LABS: Basophils % 0.4 %; Eosinophils # 0.1 K/mcL (0.0-0.6); Eosinophils % 1.4 %; Hematocrit 30.6 % (37.5-50.1); Hemoglobin 9.4 g/dL (12.9-16.9); Immature Granulocytes % 0.6 % (0-4); Lymphocytes # 2.3 K/mcL (0.6-4.6); Lymphocytes % 23.2 %; Mean Corpuscular HGB Conc 30.7 g/dL (31.6-35.5); Mean Corpuscular Hemoglobin 28.9 pg (28.0-33.3); Mean Corpuscular Volume 94.2 fL (83.0-100.0); Mean Platelet Volume 10.1 fL (9.4-12.4); Monocytes # 0.7 K/mcL (0.0-1.3); Monocytes % 7.2 %; Neutrophils # 6.6 K/mcL (1.6-8.9); Platelet Count 168 K/mcL (140-400); Red Blood Count 3.25 M/mcL (4.19-5.50); Red Cell Distribution Width 13.9 % (11.5-14.5); Segmented Neutrophils % 67.2 %
[2017-06-18 05:22] LABS: Albumin 3.5 g/dL (3.5-5.0); Albumin/Globulin Ratio 1.3 (1.1-2.2); Bilirubin,Total 0.5 mg/dL (0.2-1.2); Calcium 8.6 mg/dL (8.6-10.8); Globulin 2.8 g/dL (2.4-3.5); Potassium 5.3 mEq/L (3.5-4.5); Total Protein 6.3 g/dL (6.0-8.3)
[2017-06-18] MEDS: *HR* Heparin 5,000 UNIT/ML VIAL SQ SCH (06:24)
[2017-06-18 07:44] LABS: Adenovirus Not Detected (Not Detect); Bordetella Pertussis Not Detected (Not Detect); Chlamydophila pneumoniae Not Detected (Not Detect); Coronavirus 229E Not Detected (Not Detect); Coronavirus HKU1 Not Detected (Not Detect); Coronavirus NL63 Not Detected (Not Detect); Coronavirus OC43 Not Detected (Not Detect); Human Metapneumovirus Not Detected (Not Detect); Human Rhinovirus/Enterovirus Not Detected (Not Detect); Influenza A Subtype 2009 H1 Not Detected (Not Detect); Influenza A Untypeable Not Detected (Not Detect); Influenza B Not Detected (Not Detect); Mycoplasma pneumoniae Not Detected (Not Detect); Parainfluenza Virus 1 Not Detected (Not Detect); Parainfluenza Virus 2 Not Detected (Not Detect); Parainfluenza Virus 3 Not Detected (Not Detect); Parainfluenza Virus 4 Not Detected (Not Detect); Respiratory Syncytial Virus Not Detected (Not Detect)
[2017-06-18] MEDS: Tiotropium 18 MCG inhalation IH SCH (08:23)
[2017-06-18] MEDS: *HR* Amiodarone 200 MG TABLET PO SCH (10:29)
[2017-06-18] MEDS: Metoprolol XL (24 HR) Succ 50 MG TAB.ER.24H PO SCH (10:29)
[2017-06-18] MEDS: Isosorbide MONOnitrate (24 HR) 60 MG TAB.ER.24H PO SCH (10:29)
[2017-06-18] MEDS: Aspirin 81 MG TAB.CHEW PO SCH (10:29)
[2017-06-18] MEDS: 0.9 % Sodium Chloride 1,000 ML IVC SCH ×2 (10:51→10:52)
--- NOTE | 2017-06-18 11:25 | Nephrology Progress Note ---
Date of Encounter: 06/18/17 Time of Encounter: 10:45 - Assessment and Plan (1) Acute kidney injury Current Visit: No Status: Resolved AYE superimposed on CKD. Baseline creat 1.2-1.4 in setting of diuretics, and chronic NSAID;Meloxicam. Renal fct plateued, creat 3.17. Documented urine output 825cc. Hyperkalemia, K 5.3 today. Recommend gentle hydration 0.9NS @ 75 cc/hr. Acute on chronic respiratory failure, on Levaquin. Renal US and UA negative. I&O, avoid nephrotoxins. Will continue to monitor Subjective Interval history: Sitting up in chair. New information provided. MAR was noted to have listed Meloxicam. Office staff contacted [facility] who states prescription for Meloxicam has been filled monthly since February. Objective - Vital Signs Vital signs: Vital Signs Temp Pulse Resp BP Pulse Ox 06/18/17 11:03 97.5 F L 62 16 135/53 97 06/18/17 11:01 70 18 117/58 98 06/18/17 08:23 18 98 06/18/17 06:23 98.2 F 70 18 117/58 98 06/18/17 00:36 66 18 106/50 96 06/17/17 19:36 97.4 F L 76 19 118/54 95 06/17/17 15:13 97.7 F 62 16 116/49 98 06/17/17 11:58 98.2 F 64 16 120/51 94 Intake and Output 06/17/17 06/18/17 06/18/17 23:59 07:59 15:59 Intake Total 100 / 100 0 / 0 Output Total 100 / 100 300 / 300 300 / 300 Balance 0 / 0 -300 / -300 -300 / -300 Intake: IV Fluids 100 / 100 Levaquin Premix 500mg/100mL 500 100 / 100 mg In 100 ml @ 66.667 mls/hr IVPB Q48H [facility] Rx#:[id number] Oral 0 / 0 Output: Urine 100 / 100 300 / 300 300 / 300 Other: Meal Breakfast Percent of Meal Consumed 45% - General Appearance General appearance: Present: well-developed, well-nourished, appears started age , obese EENT: Present: mucous membranes moist Neck: Present: no JVD Respiratory: Present: clear Additional Comments: diminished throughout Cardiology: Present: no edema, regular rate, regular rhythm Additional Comments: right AKA Gastrointestinal: Present: normoactive bowel sounds, no tenderness Integumentary: Present: warm and dry Neurologic: Present: alert and oriented x3 Psychiatric: Present: mood/affect appropriate, cooperative - Lab 06/18/17 04:43 06/18/17 04:43 Most recent lab results Calcium 8.6 mg/dL (8.6-10.8) 06/18/17 04:43 Consult Discharge Plan - Plan Referrals: Sujata Duffy DO [Primary Care Provider] -
--- NOTE | 2017-06-18 13:45 | Discharge Summary ---
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 transplanted heart: [place] heart Associated angina: without angina Qualified Code(s): I25.10 - Atherosclerotic heart disease of [place] coronary artery without angina pectoris (6) Chronic systolic (congestive) heart failure Priority: Secondary Status: Chronic (7) COPD (chronic obstructive pulmonary disease) Priority: Secondary Status: Chronic Qualifiers: COPD type: emphysema Emphysema type: unspecified Qualified Code(s): J43.9 - Emphysema, unspecified (8) DVT prophylaxis Priority: Secondary Status: Acute - Discharge Medications Prescriptions: levoFLOXacin [Levaquin] 500 mg PO Q48H #7 tablet Home Medications: Aspirin 81 mg PO DAILY 06/15/15 [History] Clopidogrel [Plavix] 75 mg PO DAILY 06/15/15 [History] Fluticasone Propionate Nasal [Flonase] 1 spray NS DAILY 06/15/15 [History] Pantoprazole Sodium [Protonix] 40 mg PO DAILY 06/15/15 [History] Tiotropium [Spiriva] 18 mcg IH DAILY 06/15/15 [History] Polyethylene Glycol 3350 [MiraLAX] 17 gm PO DAILY PRN 09/05/15 [History] Multivit/Ca/Min/Fe/FA [Thera M Plus] 1 tab PO DAILY tablet 09/08/15 [Rx] Atorvastatin Calcium [Lipitor] 80 mg PO DAILY 06/09/16 [History] Fluticasone/Salmeterol [Advair Hfa 230-21 Mcg Inhaler] 2 puff IH BID 06/09/16 [ History] Metoprolol Succinate 200 mg PO DAILY #0 06/09/16 [History] Tamsulosin [Flomax] 0.4 mg PO BID 06/09/16 [History] Na Phos,M-B/Na Phos,Di-Ba [Fleet Enema Extra] 230 ml RC Q48H PRN 06/27/16 [ History] Albuterol Neb [Proventil Neb] 2.5 mg IH Q4HR 30 Days vial.neb 08/25/16 [Rx] Amiodarone [Cordarone] 200 mg PO 06/15/17 [History] Budesonide/Formoterol 80/4.5 [Symbicort 80/4.5] 0 gm IH BIDR 06/15/17 [History] Isosorbide MONOnitrate (24 HR) [Imdur] 60 mg PO DAILY 06/15/17 [History] Lisinopril [Zestril] 10 mg PO DAILY 06/15/17 [History] levoFLOXacin [Levaquin] 500 mg PO Q48H #7 tablet 06/18/17 [Rx] Allergies/Adverse Reactions: 3 Allergy/AdvReac Type Severity Reaction Status Date / Time No Known Allergies Allergy Verified 08/21/16 11:18 Procedures/tests Complete & Pending: Procedures Performed prior 72 hours Category Date Time Status CT head/brain wo con [CT] Stat Cat Scan 06/16/17 23:15 Completed Date of admission: 06/15/17 19:49 Primary care physician: Sujata Duffy DO Consults: 06/17/17 07:40 Consult to Nephrology [CONS] Routine Consulting Provider: [facility] TYRELL Reason for Consult: Hyperkalemia and AYE Time Notified: 07:40 Call Completed: Yes 06/17/17 11:59 Consult to Occupational Therapy [CONS] Routine Comment: Evaluate, develop and implement POC Reason for Consult: recent fall Consult to Physical Therapy [CONS] Routine Comment: Evaluate, develop and implement POC Reason for Consult: recent fall 06/18/17 09:06 Consult to Accountant Controller [CONS] Routine Reason for SW Consult: DIscharge planning Discharging clinician: Justin Sifuentes Anticipated date of discharge: 06/18/17 - Patient Status Disposition: Home Health Service Condition: Fair Functional capacity at discharge: uses cane/walker Overall status at discharge: patient is progressing back to baseline - Ambulatory Orders Ambulatory Orders: Basic Metabolic Panel [CHEM] Time Frame: 3 Days, Facility: [facility], Location: Lab - Discharge Instructions Follow Up With: Sujata Duffy DO [Primary Care Provider] - (in 1 week) Moiz Ramos DO [Non-Partnered Physician] - (in 1 week) Additional Instructions: Please hold her diuretics-Lasix and Aldactone till you see your primary care provider or legal activity adjudicator. - Diet and Activity Activity: as per physical therapy, increase activity as tolerated, wear oxygen at all times Diet: low fat, low cholesterol, low salt diet, other (FLuid restriction to 1.8L/ day) Hospital course: Mr. Swartz is a 82 year old male with a history of chronic kidney disease stage II, atrial fibrillation, chronic congestive heart failure, coronary artery disease, chronic respiratory failure who presented to the ER with shortness of breath. He was diagnosed with antibiotics for possible pneumonia as he was having productive cough. He was also started on treatment for possible COPD exacerbation with intravenous steroids. The next morning his symptoms had significantly improved. He was no longer wheezing. As such his steroids were stopped and he was continued on antibiotics for pneumonia. Cultures have been negative here. Patient continues to improve clinically and has returned to his baseline O2 requirements. He is no longer dyspneic. The patient was also found to have acute kidney injury on chronic kidney disease on presentation. His BUN was 13 and creatinine of 3.23. His baseline creatinine ranges usually between 1.2 and 2. Patient has been on Lasix, Aldactone and Mobic at home. These medications were held and nephrology was consulted for their recommendations. Patient was treated with gentle hydration. His creatinine has remained stable but his BUN continues to climb up. At this time patient wishes to go home. He has been having good urine output. I discussed with nephrology and per their recommendations, we will stop his diuretics and have him follow up with them in the clinic. I will also forward with a prescription to get his basic panel checked early next week to monitor his renal function. He will be discharged on oral levofloxacin to complete treatment course for his pneumonia. Patient underwent renal ultrasound was did not show any acute hydronephrosis or other abnormalities. Patient did have elevated PTH, so the rise in creatinine could also be related to worsening chronic kidney disease. He will follow up with nephrology after discharge for further evaluation. Patient did have an episode of mechanical fall which was not witnessed while he was in the hospital. He underwent CT scan of the head which did not show any acute bleed. He was evaluated by physical therapy and recommended placement to skilled rehabilitation. Patient however does not wish to go to skilled rehabilitation and wishes to go home instead. As such he will be provided with home health and physical therapy. - Time Spent with Patient Total time spent providing and/or coordinating discharge services: Greater than 30 minutes (40 min) - Constitutional Vitals: Temp Pulse Resp BP Pulse Ox 97.5 F L 62 16 135/53 97 06/18/17 11:03 06/18/17 11:03 06/18/17 11:03 06/18/17 11:03 06/18/17 11:03 General appearance: Present: cooperative, A&O X 3, obese, answers questions appropriately - Neck Neck exam general surgery: Present: supple, trachea midline. Absent: lymphadenopathy - Respiratory Respiratory exam: Present: CTAB. Absent: accessory muscle use, rales, rhonchi, wheezes - Cardiovascular Cardiovascular exam: Present: RRR, +S1, +S2. Absent: diastolic murmur, gallop, rubs, systolic murmur - GI/Abdominal GI/Abdominal exam: Present: normal bowel sounds, soft, no peritoneal signs. Absent: distended, tenderness
[2017-06-18 13:48] VITALS: BP 108/57
--- NOTE | 2017-06-18 13:59 | Physician Discharge Referral ---
Home Health/Hosp Referral Info Transfer to: Home Health Provider in Charge Post Discharge: PCP - Diagnosis (1) Pneumonia, organism unspecified Priority: Primary Status: Acute (2) Acute and chronic respiratory failure with hypoxia Priority: Secondary Status: Acute (3) Acute kidney injury superimposed on chronic kidney disease Priority: Secondary Status: Acute (4) Atrial fibrillation Priority: Secondary Status: Chronic (5) CAD (coronary artery disease) Priority: Secondary Status: Chronic (6) Chronic systolic (congestive) heart failure Priority: Secondary Status: Chronic (7) COPD (chronic obstructive pulmonary disease) Priority: Secondary Status: Chronic (8) DVT prophylaxis Priority: Secondary Status: Acute - Respiratory Orders Oxygen / L per min (2) Smoking Cessation: Smoking cessation has been advised. For more information, call the [employer] Quit Line at 3-346-KJAD-NOW. - Diet/Nutrition Diet/Nutrition Orders: Cardiac - Activity Activity Orders: Walker - Services Needed Following services are medically necessary services: Nursing, Home Health Aide, Physical Therapy, Occupational Therapy - Transfer Medications Prescriptions: levoFLOXacin [Levaquin] 500 mg PO Q48H #7 tablet Home Medications: Aspirin 81 mg PO DAILY 06/15/15 [History] Clopidogrel [Plavix] 75 mg PO DAILY 06/15/15 [History] Fluticasone Propionate Nasal [Flonase] 1 spray NS DAILY 06/15/15 [History] Pantoprazole Sodium [Protonix] 40 mg PO DAILY 06/15/15 [History] Tiotropium [Spiriva] 18 mcg IH DAILY 06/15/15 [History] Polyethylene Glycol 3350 [MiraLAX] 17 gm PO DAILY PRN 09/05/15 [History] Multivit/Ca/Min/Fe/FA [Thera M Plus] 1 tab PO DAILY tablet 09/08/15 [Rx] Atorvastatin Calcium [Lipitor] 80 mg PO DAILY 06/09/16 [History] Fluticasone/Salmeterol [Advair Hfa 230-21 Mcg Inhaler] 2 puff IH BID 06/09/16 [ History] Metoprolol Succinate 200 mg PO DAILY #0 06/09/16 [History] Tamsulosin [Flomax] 0.4 mg PO BID 06/09/16 [History] Na Phos,M-B/Na Phos,Di-Ba [Fleet Enema Extra] 230 ml RC Q48H PRN 06/27/16 [ History] Albuterol Neb [Proventil Neb] 2.5 mg IH Q4HR 30 Days vial.neb 08/25/16 [Rx] Amiodarone [Cordarone] 200 mg PO 06/15/17 [History] Budesonide/Formoterol 80/4.5 [Symbicort 80/4.5] 0 gm IH BIDR 06/15/17 [History] Isosorbide MONOnitrate (24 HR) [Imdur] 60 mg PO DAILY 06/15/17 [History] Lisinopril [Zestril] 10 mg PO DAILY 06/15/17 [History] levoFLOXacin [Levaquin] 500 mg PO Q48H #7 tablet 06/18/17 [Rx] Allergies/Adverse Reactions: 3 Allergy/AdvReac Type Severity Reaction Status Date / Time No Known Allergies Allergy Verified 08/21/16 11:18 Certification: Further, I certify that my clinical findings support that this patient is homebound (i.e. absences from home require considerable and taxing effort and are for medical reasons or yars[employer] services or infrequently or short duration when for other reasons) because: Homebound Reason: Patient requires assistance of a person or device to safely leave home Attestation: My signature below is to certify that this patient is under my care and that I, or nurse practitioner, or a physician's personal banking assistant working with me, has a face-to -face encounter with this patient.
[2017-06-18] MEDS ORDERED: FLUARIX QUAD 2017-18 36MOS UP/PF 0.5 ML SYRINGE IM ONE (14:11)
== END 2017-06-18 15:17 | disposition home health service (06) | DRG 193 ==
LOC: 3BNU 11:07 → EMEROO 11:07 → SUATTDRO 14:01 → 3BNU 14:47 → SUATTDRO 19:49 → 3BNU 06-16 23:57
PROVIDERS: ADMIT Registered Nurse; ATTEND Internal Medicine

== ENCOUNTER 2017-07-25 15:21 | Inpatient (IN) ==
[2017-07-25] MEDS ORDERED: Calcium Gluconate 1,000 MG in D5% in Water 100 ML IVPB ONE (15:40)
--- NOTE | 2017-07-25 15:40 | Emergency Department Note ---
Disposition Clinical Impression: Hyperkalemia, Weakness, Elevated troponin, Kidney disease with fluid retention Anemia Qualifiers: Anemia type: unspecified type Qualified Code(s): D64.9 - Anemia, unspecified Disposition: Admitted As Inpatient Condition: Critical Time of Disposition: 17:56 Recheck wound or abnormal lab - General Chief Complaint: ED Recheck/Abnormal Lab/Rx Stated Complaint: high K+ Time Seen by Provider: 07/25/17 15:23 Nursing Notes Reviewed: Yes Vital Signs Reviewed: Yes - History of Present Illness HPI Narrative: Mr. Swartz, an 82yo male, presents from [facility] for evaluation of hyperkalemia found on routine labs at the residential. Patient's only complaint at this time is weakness over the last 3-4 days. PMH: Atrial fibrillation, COPD, GERD, hypertension, hyperlipidemia, COPD, CAD status post ACS with stent, pacemaker in place in left upper chest wall. Patient has been on spironolactone 25 mg daily. Antiplatelet of aspirin and Plavix. No anticoagulant. ROS: Positive: Weakness Negative: Fever, chills, nausea, vomiting, chest pains, palpitations, headache, changes in vision, confusion - Related Data Home Medications Medication Instructions Recorded Confirmed Aspirin 81 mg PO DAILY 06/15/15 07/25/17 Clopidogrel [Plavix] 75 mg PO DAILY 06/15/15 07/25/17 Fluticasone Propionate Nasal 100 mcg NS DAILY 06/15/15 07/25/17 [Flonase] Pantoprazole Sodium [Protonix] 40 mg PO DAILY 06/15/15 07/25/17 Polyethylene Glycol 3350 [MiraLAX] 17 gm PO DAILY PRN 09/05/15 07/25/17 Atorvastatin Calcium [Lipitor] 80 mg PO DAILY 06/09/16 07/25/17 Fluticasone/Salmeterol [Advair Hfa 2 puff IH BID 06/09/16 07/25/17 230-21 Mcg Inhaler] Metoprolol Succinate 200 mg PO DAILY #0 06/09/16 07/25/17 Tamsulosin [Flomax] 0.4 mg PO DAILY 06/09/16 07/25/17 Amiodarone [Cordarone] 100 mg PO DAILY 06/15/17 07/25/17 Isosorbide MONOnitrate (24 HR) 60 mg PO DAILY 06/15/17 07/25/17 [Imdur] Lisinopril [Zestril] 10 mg PO DAILY 06/15/17 07/25/17 Albuterol Neb [Proventil Neb] 2.5 mg IH Q4HR PRN 07/25/17 07/25/17 Albuterol Sulfate [Ventolin Hfa] 2 puff IH Q4H PRN 07/25/17 07/25/17 Furosemide [Lasix] 20 mg PO BID 07/25/17 07/25/17 Guaifenesin [Mucinex] 600 mg PO BID 07/25/17 07/25/17 Magnesium Oxide [Mag-Ox] 400 mg PO DAILY 07/25/17 07/25/17 Meloxicam [Mobic] 7.5 mg PO BID 07/25/17 07/25/17 Multivitamin [Flintstones] 1 tab PO DAILY 07/25/17 07/25/17 Polyethylene Glycol 3350 [MiraLAX] 17 gm PO DAILY 07/25/17 07/25/17 Spironolactone [Aldactone] 25 mg PO DAILY 07/25/17 07/25/17 Travoprost [Travatan Z] 1 drop OP QPM 07/25/17 07/25/17 predniSONE [PredniSONE] 40 mg PO DAILY 07/25/17 07/25/17 Previous Rx's Medication Instructions Recorded levoFLOXacin [Levaquin] 500 mg PO Q48H #7 tablet 06/18/17 Allergies Allergy/AdvReac Type Severity Reaction Status Date / Time No Known Allergies Allergy Verified 08/21/16 11:18 All systems ED: reviewed and negative except as stated. Review of Systems: As Per HPI Past Medical History - Past Medical History Medical history: Reports: asthma, atrial fibrillation, cardiomyopathy, CHF, COPD , coronary artery disease, GERD, GI bleed, hyperlipidemia, hypertension, myocardial infarction, valvular heart disease (S/P TAVR) Surgical history: Reports: angioplasty/stent, coronary bypass (CABG), pacemaker/ AICD (ICD), other (Right AKA 1993) Psychiatric history: Reports: no psych history - Social History Smoking Status: Former smoker Smokeless Tobacco Status: No Alcohol use: Reports: none Drug use: Reports: none Physical Exam Vital Signs Reviewed General: Patient is alert, oriented, and in no acute distress. HEENT: No facial asymmetry. Head is normocephalic and atraumatic. PERRLA, EOMI. oral mucosa moist. Trachea midline. Cardiovascular: Heart regular rate and rhythm without clicks, rubs, gallops, or murmurs. No JVD. PMI nondisplaced. Respiratory: Symmetric chest rise with poor respiratory effort. Bilateral breath sounds have scant wheezing without crackles or rhonchi. Abdomen: Bowel sounds present normoactive x-4 quadrants. Abdomen is soft, nondistended, and nontender. Musculoskeletal: Muscle strength 5/5 and symmetric bilaterally in upper extremities. Strength 5/5 in lower left extremity. Right lower extremity AKA amputation. DTR 2/4 and left lower extremity and bilateral upper extremity. Neuro: Sensation light touch intact. GCS 15. Skin: Warm, dry, intact Psych: Patient's affect is appropriate for situation. Course Course Narrative: While in the ER, patient has received Kayexalate, albuterol inhaler, calcium gluconate, 10 units IV insulin, 1 amp D50 IV Patient presents with hyperkalemia with potassium 8.0. He is alert, oriented. His only symptom at this time appears to be weakness. EKG shows mild T-wave elevation without peaks per se. This is approximately 1-2 mm elevated versus comparative EKG. Patient's creatinine is elevated from normal however this is somewhat within his baseline; patient's creatinine level has fluctuated in his past. Patient has elevated troponin of 0.07. Suspect this is secondary to decreased renal clearance. Suspect patient's hyperkalemia is secondary to his potassium sparing medications coupled with his chronic kidney disease becoming worse. Repeat potassium: 7.9. Patient is trending in the correct direction. I discussed the patient with the admitting hospitalist, Dr. Lara, who agrees to accept the patient for continued evaluation and management. Vital Signs Temperature 98.7 F 07/25/17 15:23 Pulse Rate 61 07/25/17 15:23 Respiratory Rate 14 07/25/17 15:23 Blood Pressure 116/93 07/25/17 15:23 O2 Sat by Pulse Oximetry 99 07/25/17 15:23 Temperature 98.7 F 07/25/17 15:23 Pulse Rate 52 07/25/17 17:02 Respiratory Rate 15 07/25/17 16:08 Blood Pressure 119/69 07/25/17 17:02 O2 Sat by Pulse Oximetry 97 07/25/17 17:02 Oxygen Delivery Oxygen Delivery Nasal Cannula Recheck wound or abnormal lab - Medical Records Medical records reviewed: Yes I reviewed the patient's medical records. - Lab Data Lab results reviewed: Yes I reviewed the patient's lab results. Result diagrams: 07/25/17 15:38 07/25/17 17:12 Lab Results 07/25/17 07/25/17 07/25/17 Range/Units 15:38 15:38 15:38 WBC 10.0 (4.3-11.1) K/mcL RBC 3.26 L (4.19-5.50) M/mcL Hgb 9.8 L (12.9-16.9) g/dL Hct 30.7 L (37.5-50.1) % MCV 94.2 (83.0-100.0) fL MCH 30.1 (28.0-33.3) pg MCHC 31.9 (31.6-35.5) g/dL RDW 14.2 (11.5-14.5) % Plt Count 61 L (140-400) K/mcL MPV 10.6 (9.4-12.4) fL Immature Gran % 0.3 (0-4) % Seg Neutrophils % 91.8 % Lymphocytes % 5.7 % Monocytes % 2.2 % Eosinophils % 0.0 % Basophils % 0.0 % Neutrophils # 9.2 H (1.6-8.9) K/mcL Lymphocytes # 0.6 (0.6-4.6) K/mcL Monocytes # 0.2 (0.0-1.3) K/mcL Eosinophils # 0.0 (0.0-0.6) K/mcL Basophils # 0.0 (0.0-0.2) K/mcL PT (9.4-12.1) Seconds INR APTT (26.0-36.0) Seconds VBG pH (7.32-7.42) pH Units VBG pCO2 (41-51) mmHg VBG pO2 (25-50) mmHg VBG HCO3 (21-27) mEq/L Sodium 129 L (136-145) mEq/L Potassium 8.0 H* (3.5-4.5) mEq/L Chloride 98 (98-109) mEq/L Carbon Dioxide 24 (19-29) mEq/L BUN 72 H (8-26) mg/dL Creatinine 2.52 H (0.72-1.25) mg/dL Est GFR ( Amer) 30 L (> 60) Est GFR (Non-Af Amer) 25 L (> 60) BUN/Creatinine Ratio 29 H (6-26) Glucose 122 H (70-99) mg/dL Calculated Osmolality 290 (280-300) Calcium 8.7 (8.6-10.8) mg/dL Total Bilirubin 0.6 (0.2-1.2) mg/dL AST 16 (5-34) Units/L ALT 29 (0-55) Units/L Alkaline Phosphatase 56 (38-126) Units/L Troponin I 0.07 H* (0-0.03) ng/mL B-Natriuretic Peptide (0-100) pg/mL Serum Total Protein 6.2 (6.0-8.3) g/dL Albumin 2.8 L (3.5-5.0) g/dL Globulin 3.4 (2.4-3.5) g/dL Albumin/Globulin Ratio 0.8 L (1.1-2.2) 07/25/17 07/25/17 07/25/17 Range/Units 15:38 15:52 16:38 WBC (4.3-11.1) K/mcL RBC (4.19-5.50) M/mcL Hgb (12.9-16.9) g/dL Hct (37.5-50.1) % MCV (83.0-100.0) fL MCH (28.0-33.3) pg MCHC (31.6-35.5) g/dL RDW (11.5-14.5) % Plt Count (140-400) K/mcL MPV (9.4-12.4) fL Immature Gran % (0-4) % Seg Neutrophils % % Lymphocytes % % Monocytes % % Eosinophils % % Basophils % % Neutrophils # (1.6-8.9) K/mcL Lymphocytes # (0.6-4.6) K/mcL Monocytes # (0.0-1.3) K/mcL Eosinophils # (0.0-0.6) K/mcL Basophils # (0.0-0.2) K/mcL PT 9.7 (9.4-12.1) Seconds INR 0.9 APTT 23.7 L (26.0-36.0) Seconds VBG pH 7.30 L (7.32-7.42) pH Units VBG pCO2 54 H (41-51) mmHg VBG pO2 44 (25-50) mmHg VBG HCO3 26 (21-27) mEq/L Sodium (136-145) mEq/L Potassium (3.5-4.5) mEq/L Chloride (98-109) mEq/L Carbon Dioxide (19-29) mEq/L BUN (8-26) mg/dL Creatinine (0.72-1.25) mg/dL Est GFR ( Amer) (> 60) Est GFR (Non-Af Amer) (> 60) BUN/Creatinine Ratio (6-26) Glucose (70-99) mg/dL Calculated Osmolality (280-300) Calcium (8.6-10.8) mg/dL Total Bilirubin (0.2-1.2) mg/dL AST (5-34) Units/L ALT (0-55) Units/L Alkaline Phosphatase (38-126) Units/L Troponin I (0-0.03) ng/mL B-Natriuretic Peptide 214 H (0-100) pg/mL Serum Total Protein (6.0-8.3) g/dL Albumin (3.5-5.0) g/dL Globulin (2.4-3.5) g/dL Albumin/Globulin Ratio (1.1-2.2) - EKG Data EKG attestation: Yes I reviewed and interpreted this EKG. EKG results narrative: EKG dated 07/25/17 at 15:27 interpreted as ventricular paced. Rate of 61. Nonspecific ST-T changes. Compared previous dated 06/15/2017 showing no acute ischemic changes. Critical Care Time Critical Care Time: Yes Total Critical Care Time: 35 Attestation: Critical care time 35 minutes managing patient's hyperkalemia. Attestation Statement - Attestation Attestation: Patient was seen with resident physician. I reviewed the history, physical, assessment and plan, and agree with the findings. I also personally evaluated this patient and had [id number] time with this patient. 10-year-old male lives in a residential was found to have hyperkalemia brought to the ER for evaluation. Patient states only symptom is shortness of breath. He says he has had increased swelling of his left lower extremity. His amputation of the right lower extremity. He says his also been increasingly short of breath over the last couple of days. Patient appears to have ongoing renal failure which is gotten worse over the last 12 months or so. Patient himself mumbles and is very difficult to understand it is difficult to obtain history. On examination vital signs are stable. ENT is unremarkable. Heart regular rhythm and rate. Lungs clear. Abdomen is soft and nontender. Extremities his funmilayo above-the- knee amputation of the right lower extremity he has got swelling of the left lower extremity. Neurologically patient appears alert and oriented attempts to answer questions though he mumbles so it is difficult to understand. He does move all extremities. ED course. Potassium was very elevated. Patient was mildly acidotic. His renal function has worsened since his last evaluation but is not as bad as it has been. Patient received hyperkalemia treatments. He was monitored while here in the emergency department. His EKG does not show significant changes from prior he is paced so it can be difficult to tell. The T waves do not look significantly different. Hemodynamically he stayed stable while in the ER. We discussed the case with the hospitalist will bring him in for admission. I agree with the resident physician assessment plan. Critical care time 35 minutes.
[2017-07-25] MEDS ORDERED: Albuterol 2.5 MG/3 ML NEBULIZER IH ONE ×2 (15:42→19:20)
[2017-07-25 15:49] LABS: Hematocrit 30.7 % (37.5-50.1); Hemoglobin 9.8 g/dL (12.9-16.9); Immature Granulocytes % 0.3 % (0-4); Lymphocytes # 0.6 K/mcL (0.6-4.6); Lymphocytes % 5.7 %; Mean Corpuscular HGB Conc 31.9 g/dL (31.6-35.5); Mean Corpuscular Hemoglobin 30.1 pg (28.0-33.3); Mean Corpuscular Volume 94.2 fL (83.0-100.0); Mean Platelet Volume 10.6 fL (9.4-12.4); Monocytes # 0.2 K/mcL (0.0-1.3); Monocytes % 2.2 %; Neutrophils # 9.2 K/mcL (1.6-8.9); Red Blood Count 3.26 M/mcL (4.19-5.50); Red Cell Distribution Width 14.2 % (11.5-14.5); Segmented Neutrophils % 91.8 %
[2017-07-25 15:50] LABS: Platelet Count 61 K/mcL (140-400)
[2017-07-25 15:57] LABS: VBG HCO3 26 mEq/L (21-27); VBG PCO2 54 mmHg (41-51); VBG PO2 44 mmHg (25-50)
[2017-07-25 16:07] LABS: Albumin 2.8 g/dL (3.5-5.0); Albumin/Globulin Ratio 0.8 (1.1-2.2); Bilirubin,Total 0.6 mg/dL (0.2-1.2); Calcium 8.7 mg/dL (8.6-10.8); Globulin 3.4 g/dL (2.4-3.5); Total Protein 6.2 g/dL (6.0-8.3)
[2017-07-25] MEDS ORDERED: Furosemide 40 MG/4 ML VIAL IVP ONE ×2 (16:30→19:33)
[2017-07-25] MEDS ORDERED: Insulin Human Regular 10 UNIT in 0.9 % Sodium Chloride 10 ML IV ONE (16:31)
[2017-07-25] MEDS ORDERED: *HR* Dextrose 50 % in Water (Syg) 50 ML SYRINGE IVP ONE ×2 (16:31→20:00)
[2017-07-25 16:50] LABS: INR 0.9; Prothrombin Time 9.7 Seconds (9.4-12.1)
[2017-07-25 16:52] LABS: Activated Partial Thrombo Time 23.7 Seconds (26.0-36.0)
[2017-07-25 17:28] LABS: Calcium 8.7 mg/dL (8.6-10.8)
[2017-07-25 17:31] LABS: Potassium 7.9 mEq/L (3.5-4.5)
[2017-07-25] MEDS ORDERED: *HR* Dextrose 50 % in Water (Vial) 50 ML VIAL IVP ONE (19:42)
[2017-07-25] MEDS ORDERED: Insulin Regular, Human 100 UNIT/ML SQ ONE (19:42)
[2017-07-25] MEDS ORDERED: Insulin Human Regular 7 UNIT in 0.9 % Sodium Chloride 10 ML IV ONE (20:00)
--- NOTE | 2017-07-25 20:36 | Internal Med History&Physical ---
Date of Encounter: 07/25/17 Time of Encounter: 20:33 Assessment and Plan (1) Hyperkalemia Current visit: Yes Status: Acute Potassium only slowly improving after aggressive treatment for hyperkalemia. Potassium improved from 8 to 7.9 7.6. Discuss case with plate grainer apprentice recommended urgent dialysis. Discuss case with interventional radiologist who kindly accepted to place catheter and will dialysis patient immediately (2) NSTEMI (non-ST elevated myocardial infarction) Current visit: No Status: Acute NSTEMI type 2 due to demand ischemia. (3) COPD exacerbation Current visit: Yes Status: Acute We give the patient nebulizer treatments [id number] 40 mg PO prednisone daily Internal Medicine - H&P: HPI Chief complaint: hyperkalemia History of present illness: Mr. Swartz is a 82 year old male patient was sent from the longterm because he was hyperkalemia. Patient was found on routine labs to be hyperglycemic potassium on arrival to the emergency room was 8. Patient man complain is generalized weakness lethargy over the past 3 days. Patient is a poor historian. Patient received aggressive treatment for hyperkalemia in emergency room and potassium was repeated 3 times every 3 hours with the results as follows 8 than 7.9 and 7.6. Nephrology has been frequently contacted and recommended urgent dialysis. Patient takes lisinopril and spironolactone at home. Patient appears to be more short of breath than usual according to him with lower extremity swelling Past Med Surg Social Fam HX - Past Medical History Medical history: asthma, atrial fibrillation, cardiomyopathy, CHF, COPD, coronary artery disease, GERD, GI bleed, hyperlipidemia, hypertension, myocardial infarction, valvular heart disease (S/P TAVR) Psychiatric history: no psych history - Past Surgical History Surgical History: angioplasty/stent, coronary bypass (CABG), pacemaker/AICD (ICD ), other (Right AKA 1993) - Social History Smoking Status: Former smoker Smokeless Tobacco Status: No Alcohol use: none Drug use: none - Family History Mother Living Status: Hx Family Cardiac Disorders: Yes Hx Family Respiratory Disorders: No Hx Family Cancer: Yes (father Hodgkins) Internal Medicine - H&P: Meds Aspirin 81 mg PO DAILY 06/15/15 [History] Clopidogrel [Plavix] 75 mg PO DAILY 06/15/15 [History] Fluticasone Propionate Nasal [Flonase] 100 mcg NS DAILY 06/15/15 [History] Pantoprazole Sodium [Protonix] 40 mg PO DAILY 06/15/15 [History] Polyethylene Glycol 3350 [MiraLAX] 17 gm PO DAILY PRN 09/05/15 [History] Atorvastatin Calcium [Lipitor] 80 mg PO DAILY 06/09/16 [History] Fluticasone/Salmeterol [Advair Hfa 230-21 Mcg Inhaler] 2 puff IH BID 06/09/16 [ History] Metoprolol Succinate 200 mg PO DAILY #0 06/09/16 [History] Tamsulosin [Flomax] 0.4 mg PO DAILY 06/09/16 [History] Amiodarone [Cordarone] 100 mg PO DAILY 06/15/17 [History] Isosorbide MONOnitrate (24 HR) [Imdur] 60 mg PO DAILY 06/15/17 [History] Lisinopril [Zestril] 10 mg PO DAILY 06/15/17 [History] levoFLOXacin [Levaquin] 500 mg PO Q48H #7 tablet 06/18/17 [Rx] Albuterol Neb [Proventil Neb] 2.5 mg IH Q4HR PRN 07/25/17 [History] Albuterol Sulfate [Ventolin Hfa] 2 puff IH Q4H PRN 07/25/17 [History] Furosemide [Lasix] 20 mg PO BID 07/25/17 [History] Guaifenesin [Mucinex] 600 mg PO BID 07/25/17 [History] Magnesium Oxide [Mag-Ox] 400 mg PO DAILY 07/25/17 [History] Meloxicam [Mobic] 7.5 mg PO BID 07/25/17 [History] Multivitamin [Flintstones] 1 tab PO DAILY 07/25/17 [History] Polyethylene Glycol 3350 [MiraLAX] 17 gm PO DAILY 07/25/17 [History] Spironolactone [Aldactone] 25 mg PO DAILY 07/25/17 [History] Travoprost [Travatan Z] 1 drop OP QPM 07/25/17 [History] predniSONE [PredniSONE] 40 mg PO DAILY 07/25/17 [History] 3 Allergy/AdvReac Type Severity Reaction Status Date / Time No Known Allergies Allergy Verified 08/21/16 11:18 All Systems PM: A 10-system review of systems was performed and is negative for pertinent findings except as documented above in the HPI. Review of systems: 10 point review of systems is negative except for HPI - Constitutional Vitals: Temp Pulse Resp BP Pulse Ox 98.7 F 67 18 102/60 98 07/25/17 18:00 07/25/17 18:00 07/25/17 18:00 07/25/17 18:00 07/25/17 18:00 Exam: General: Patient is A&O X3 Cardiac: normal S1, S2, no additional sounds or murmurs Chest: Coarse breath sounds improve with cough. few basal rales Abdomen: soft, nontender, non distended, normal BS. Neuro: No focal deficits LE: 1+ swelling Internal Med - H&P Results - Labs CBC & Chem 7: 07/25/17 15:38 07/25/17 18:50 Labs: BMP 07/25/17 07/25/17 17:12 18:50 Sodium 127 L Potassium 7.9 H* 7.6 H* Chloride 97 L Carbon Dioxide 26 BUN 74 H Creatinine 2.61 H Glucose 255 H Calcium 8.7
[2017-07-25] MEDS: Budesonide/Formoterol 160/4.5 MDI IH SCH (20:59)
[2017-07-25] MEDS: predniSONE 20 MG TABLET PO SCH (20:59)
[2017-07-25] MEDS ORDERED: *HR* Heparin 5,000 UNIT/ML VIAL ONE (22:05)
[2017-07-26] MEDS ORDERED: 0.9 % Sodium Chloride 250 ML IVC PRN
[2017-07-26] MEDS ORDERED: 0.9 % Sodium Chloride 1,000 ML PRIME SCH
[2017-07-26 01:21] LABS: Hepatitis B Surface Antigen Nonreactive (Nonreactive)
[2017-07-26 03:01] LABS: Hemoglobin 8.7 g/dL (12.9-16.9); Lymphocytes % 3.1 %
[2017-07-26 03:03] LABS: Hematocrit 26.6 % (37.5-50.1); Immature Granulocytes % 0.2 % (0-4); Immature Platelets 6.4 % (1.1-6.1); Lymphocytes # 0.4 K/mcL (0.6-4.6); Mean Corpuscular HGB Conc 32.7 g/dL (31.6-35.5); Mean Corpuscular Hemoglobin 30.2 pg (28.0-33.3); Mean Corpuscular Volume 92.4 fL (83.0-100.0); Monocytes # 0.5 K/mcL (0.0-1.3); Monocytes % 3.5 %; Neutrophils # 12.1 K/mcL (1.6-8.9); Red Blood Count 2.88 M/mcL (4.19-5.50); Red Cell Distribution Width 14.2 % (11.5-14.5); Segmented Neutrophils % 93.2 %
[2017-07-26 03:04] LABS: Platelet Count 61 K/mcL (140-400)
[2017-07-26 03:20] LABS: Calcium 7.9 mg/dL (8.6-10.8); Magnesium 1.6 mg/dL (1.6-2.6)
[2017-07-26 03:23] LABS: Potassium 4.5 mEq/L (3.5-4.5)
[2017-07-26] MEDS ORDERED: 0.9 % Sodium Chloride 1,000 ML ONE (03:30)
[2017-07-26 03:38] LABS: Basophilic Stippling 1+ (Not Present); Platelet Estimate Decreased (Normal); Polychromasia 1+ (Not Present)
[2017-07-26] MEDS: Ipratropium/Albuterol Neb 3 ML IH SCH ×4 (03:58→21:52)
[2017-07-26] MEDS: Aspirin 81 MG TAB.CHEW PO SCH (07:52)
[2017-07-26] MEDS: Isosorbide MONOnitrate (24 HR) 60 MG TAB.ER.24H PO SCH (07:52)
[2017-07-26] MEDS: *HR* Amiodarone 200 MG TABLET PO SCH (07:52)
[2017-07-26] MEDS: predniSONE 20 MG TABLET PO SCH (07:53)
[2017-07-26] MEDS: Metoprolol XL (24 HR) Succ 50 MG TAB.ER.24H PO SCH (07:53)
[2017-07-26] MEDS ORDERED: *HR* Heparin 5,000 UNIT/ML VIAL ONE (07:55)
[2017-07-26] MEDS: Fluticasone Propionate Nasal 50 MCG/SPRAY BOTTLE NS SCH (07:56)
--- NOTE | 2017-07-26 09:16 | Nephrology Consult Note ---
Date of Encounter: 07/26/17 Time of Encounter: 08:15 Assessment and Plan (1) Hyperkalemia Current Visit: Yes Status: Acute Hyperkalemia in setting of ACEI/potassium sparing diuretic. Urgent dialysis last night, K 4.5 today. Should not be on ACEI/ARB or potassium sparing diuretics in future. AYE superimposed on CKD 3 most likely related to diuretic. Creat today 1.43. Avoid NSAID's/nephrotoxins. Will continue to monitor. (2) Acute kidney injury Current Visit: No Status: Resolved History of Present Illness - Reason for Consult hyperkalemia - History of Present Illness Mr. Swartz is a 82 year old patient with recently diagnosed CKD 3 most likely in setting of hypertension, NSAID's and diuretics contributing. Baseline creat 1.2-1.4. Last seen in office last week F/U to recent hospital stay Jun.2. for acute on chronic resp failure, AYE/CKD in setting of diuretics. Hyperkalemia 5.5 in setting ACEI/Aldactone. Other PMH-asthma, atrial fibrillation, cardiomyopathy, CHF, COPD, coronary artery disease, GERD, GI bleed, hyperlipidemia, hypertension, myocardial infarction, valvular heart disease (S/ P TAVR), angioplasty/stent, coronary bypass (CABG), pacemaker/AICD (ICD), other (Right AKA 1993). This morning at consult Mr Swartz is alert, is a poor medical coding auditor and has a severe speech impediment, therefore HPI obtained from prior notes. Mr. Swartz presented to [facility] from nursing facility with hyperkalemia of 8.0. Creat peaked 2.61. Aggressive treatment for hyperkalemia in ER without much improvement. Repeated K 7.9 and 7.6. Nephrology consulted and urgent dialysis performed. It is noted patient on ACEI and potassium sparing diuretic at nursing facility. Which have been stopped. Potassium this morning 4.5, creat 1.43. Past Med Surg Social Fam HX - Past Medical History Medical history: asthma, atrial fibrillation, cardiomyopathy, CHF, COPD, coronary artery disease, GERD, GI bleed, hyperlipidemia, hypertension, myocardial infarction, valvular heart disease (S/P TAVR) Psychiatric history: no psych history - Past Surgical History Surgical History: angioplasty/stent, coronary bypass (CABG), pacemaker/AICD (ICD ), other (Right AKA 1993) - Social History Smoking Status: Former smoker Smokeless Tobacco Status: No Alcohol use: none Drug use: none - Family History Mother Living Status: Hx Family Cardiac Disorders: Yes Hx Family Respiratory Disorders: No Hx Family Cancer: Yes (father Hodgkins) Medications and Allergies Aspirin 81 mg PO DAILY 06/15/15 [History] Clopidogrel [Plavix] 75 mg PO DAILY 06/15/15 [History] Fluticasone Propionate Nasal [Flonase] 100 mcg NS DAILY 06/15/15 [History] Pantoprazole Sodium [Protonix] 40 mg PO DAILY 06/15/15 [History] Polyethylene Glycol 3350 [MiraLAX] 17 gm PO DAILY PRN 09/05/15 [History] Atorvastatin Calcium [Lipitor] 80 mg PO DAILY 06/09/16 [History] Fluticasone/Salmeterol [Advair Hfa 230-21 Mcg Inhaler] 2 puff IH BID 06/09/16 [ History] Metoprolol Succinate 200 mg PO DAILY #0 06/09/16 [History] Tamsulosin [Flomax] 0.4 mg PO DAILY 06/09/16 [History] Amiodarone [Cordarone] 100 mg PO DAILY 06/15/17 [History] Isosorbide MONOnitrate (24 HR) [Imdur] 60 mg PO DAILY 06/15/17 [History] Lisinopril [Zestril] 10 mg PO DAILY 06/15/17 [History] levoFLOXacin [Levaquin] 500 mg PO Q48H #7 tablet 06/18/17 [Rx] Albuterol Neb [Proventil Neb] 2.5 mg IH Q4HR PRN 07/25/17 [History] Albuterol Sulfate [Ventolin Hfa] 2 puff IH Q4H PRN 07/25/17 [History] Furosemide [Lasix] 20 mg PO BID 07/25/17 [History] Guaifenesin [Mucinex] 600 mg PO BID 07/25/17 [History] Magnesium Oxide [Mag-Ox] 400 mg PO DAILY 07/25/17 [History] Meloxicam [Mobic] 7.5 mg PO BID 07/25/17 [History] Multivitamin [Flintstones] 1 tab PO DAILY 07/25/17 [History] Polyethylene Glycol 3350 [MiraLAX] 17 gm PO DAILY 07/25/17 [History] Spironolactone [Aldactone] 25 mg PO DAILY 07/25/17 [History] Travoprost [Travatan Z] 1 drop OP QPM 07/25/17 [History] predniSONE [PredniSONE] 40 mg PO DAILY 07/25/17 [History] 3 Allergy/AdvReac Type Severity Reaction Status Date / Time No Known Allergies Allergy Verified 08/21/16 11:18 Review of Systems All Systems: reviewed and no additional remarkable complaints except as stated Exam - Vital Signs Vital signs: Initial Vital Signs Temp Pulse Resp BP Pulse Ox 98.7 F 61 14 116/93 99 07/25/17 15:23 07/25/17 15:23 07/25/17 15:23 07/25/17 15:23 07/25/17 15:23 Vital Signs - Last 8 Hours Temp Pulse Resp BP Pulse Ox 07/26/17 07:00 97.3 F L 64 16 101/44 100 07/26/17 04:11 97.9 F 72 18 98/73 98 07/26/17 03:58 20 92 07/26/17 02:47 97.9 F 18 115/80 07/26/17 02:25 97/51 07/26/17 02:10 98/50 07/26/17 01:55 115/69 07/26/17 01:40 105/48 07/26/17 01:25 116/74 07/26/17 01:10 112/75 Intake and Output 07/25/17 07/26/17 07/26/17 23:59 07:59 15:59 Intake Total 60 / 170 600 / 600 Output Total 850 / 850 Balance 60 / -80 -250 / -250 Intake: IV Fluids 60 / 60 Calcium Gluconate 1,000 MG In 0 60 / 60 .9 % Sodium Chloride 50 ML @ 120 mls/hr IVPB ONCE ONE Rx#: [id number] Oral 0 / 0 Intake, Rinseback and Flushes 600 / 600 Output: Urine 250 / 250 Total Dialysis (HD) Output 600 / 600 Other: Stool Size Large Moderate Stool Consistency soft loose liquid Stool Color Brown Brown Weight 79 kg Hemodialysis Net Fluid Removed 0 (mL) Patient Weight 07/26/17 23:59 Weight 79 kg - General Appearance General appearance: well-developed, well-nourished, appears started age, obese EENT: mucous membranes moist Neck: no JVD Respiratory: clear Cardiology: edema, regular rate, regular rhythm Additional Comments: right AKA - Dialysis Access Dialysis Vascular Access: Venous Catheter Additional Comments: left fem Gastrointestinal: normoactive bowel sounds, no tenderness Integumentary: warm and dry Psychiatric: mood/affect appropriate, cooperative Results - Lab Results 07/26/17 02:16 07/26/17 02:16 Most recent lab results Calcium 7.9 mg/dL (8.6-10.8) L 07/26/17 02:16 Magnesium 1.6 mg/dL (1.6-2.6) 07/26/17 02:16 Consult Discharge Plan - Plan Referrals: Sujata Duffy DO [Primary Care Provider] -
[2017-07-26] MEDS: Budesonide/Formoterol 160/4.5 MDI IH SCH ×2 (10:49→21:52)
--- NOTE | 2017-07-26 13:20 | Internal Med Progress Note ---
Date of Encounter: 07/26/17 Time of Encounter: 10:00 - Assessment and plan (1) CAD (coronary artery disease) Current Visit: No Status: Chronic Assessment and plan: Continue with aspirin and Lipitor and metoprolol. There is no evidence of ACS. Continue cardiac telemetry. Qualifiers: Coronary Disease-Associated Artery/Lesion type: unspecified vessel or lesion type [place] vs. transplanted heart: [place] heart Associated angina: without angina Qualified Code(s): I25.10 - Atherosclerotic heart disease of [place] coronary artery without angina pectoris (2) Acute kidney injury superimposed on chronic kidney disease Current Visit: No Status: Acute (3) Anemia Current Visit: Yes Status: Acute Assessment and plan: Likely related to chronic kidney disease. We will monitor daily H&H. Qualifiers: Anemia type: due to chronic kidney disease Chronic kidney disease stage: stage 4 (severe) Qualified Code(s): N18.4 - Chronic kidney disease, stage 4 ( severe); D63.1 - Anemia in chronic kidney disease; D63.1 - Anemia in chronic kidney disease (4) Hyperkalemia Current Visit: Yes Status: Acute Assessment and plan: Improved with hemodialysis. Continue with renal diet. Monitor potassium levels daily. Follow-up with nephrology. (5) COPD (chronic obstructive pulmonary disease) Current Visit: Yes Status: Acute Assessment and plan: With mild acute exacerbation. We will treat with inhaled albuterol and ipratropium. We will treat with oral prednisone. Qualifiers: COPD type: chronic bronchitis Chronic bronchitis type: simple Qualified Code(s): J41.0 - Simple chronic bronchitis (6) DVT prophylaxis Current Visit: No Status: Acute Assessment and plan: SCD to the left foot. Avoid anticoagulants due to thrombocytopenia. - Subjective Interval history: Patient is a very poor historian. Currently he reports no pain or shortness of breath. He was sent to the hospital for evaluation of elevated potassium. His potassium remained high in spite of initial aggressive medical therapy and he was emergently dialyzed late last night. - Constitutional Vitals: Temp Pulse Resp BP Pulse Ox 99.3 F 70 17 107/53 97 07/26/17 10:21 07/26/17 10:21 07/26/17 10:51 07/26/17 10:21 07/26/17 10:51 General appearance: Present: A&O X 3 - Eye Eye exam: Present: PERRL, conjuntiva pink, sclera anicteric Pupils: Present: PERRL - Neck Neck exam general surgery: Present: supple, trachea midline. Absent: lymphadenopathy - Respiratory Respiratory exam: Present: wheezes. Absent: accessory muscle use, rales, rhonchi - Cardiovascular Cardiovascular exam: Present: RRR, +S1, +S2. Absent: diastolic murmur, gallop, rubs, systolic murmur - Extremities Exam Additional comments: R AKA, L femoral HD catht in place Internal Medicine: Result - Labs CBC & Chem 7: 07/26/17 02:16 07/26/17 02:16 Labs: Short CBC 07/26/17 Range/Units 02:16 WBC 13.0 H (4.3-11.1) K/mcL Hgb 8.7 L (12.9-16.9) g/dL Hct 26.6 L (37.5-50.1) % Plt Count 61 L (140-400) K/mcL Neutrophils # 12.1 H (1.6-8.9) K/mcL BMP 07/25/17 07/26/17 22:13 02:16 Sodium 135 L D Potassium 6.9 H* 4.5 D Chloride 98 Carbon Dioxide 30 H BUN 37 H D Creatinine 1.43 H Glucose 127 H Calcium 7.9 L Cardiac Enzymes 07/25/17 07/26/17 Range/Units 22:13 02:16 Troponin I 0.06 H* 0.07 H* (0-0.03) ng/mL - ABG Interpretation ABG results: PT/INR, D-dimer PT 9.7 Seconds (9.4-12.1) 07/25/17 16:38 - Impressions Impressions KUB X-Ray 07/25/17 22:17 IMPRESSION: Interval placement left femoral venous catheter as above. D/ / Chel Isbell Cha, MD / Chel Isbell Cha, MD Interpreting Provider: Chel Isbell Cha, MD Consult Discharge Plan - Plan Referrals: Sujata Duffy DO [Primary Care Provider] -
--- NOTE | 2017-07-26 18:07 | Electrocardiograph Report ---
[address] [address] Test Date: 2017-07-25 Pat Name: Edilson Swartz Department: 103 Room: 2N06 Gender: M Drawing Operator: ALINA : [id number] Requested By: Dylan Mcintosh Order Number: [id number] Reading MD: Jayesh Still MD Measurements Intervals [place] Rate: 61 P: 47 LA: 158 QRS: -90 QRSD: 177 T: 98 QT: 454 QTc: 457 Interpretive Statements ELECTRONIC VENTRICULAR PACEMAKER ABNORMAL RHYTHM ECG Electronically Signed On 07-26-2017 18:06:06 EST by Jayesh Still MD
[2017-07-26] MEDS: Latanoprost 2.5 ML BOTTLE BOTH EYES SCH (19:17)
[2017-07-27] MEDS: Ipratropium/Albuterol Neb 3 ML IH SCH ×4 (03:23→22:04)
[2017-07-27 04:07] LABS: Hematocrit 21.6 % (37.5-50.1); Hemoglobin 7.1 g/dL (12.9-16.9); Immature Granulocytes % 0.6 % (0-4); Immature Platelets 6.4 % (1.1-6.1); Lymphocytes # 0.9 K/mcL (0.6-4.6); Lymphocytes % 12.4 %; Mean Corpuscular HGB Conc 32.9 g/dL (31.6-35.5); Mean Corpuscular Hemoglobin 30.1 pg (28.0-33.3); Mean Corpuscular Volume 91.5 fL (83.0-100.0); Mean Platelet Volume 10.3 fL (9.4-12.4); Monocytes # 0.4 K/mcL (0.0-1.3); Monocytes % 5.4 %; Neutrophils # 5.9 K/mcL (1.6-8.9); Red Blood Count 2.36 M/mcL (4.19-5.50); Red Cell Distribution Width 14.2 % (11.5-14.5); Segmented Neutrophils % 81.6 %
[2017-07-27 04:08] LABS: Platelet Count 62 K/mcL (140-400)
[2017-07-27 04:17] LABS: Potassium 5.2 mEq/L (3.5-4.5)
[2017-07-27] MEDS: *HR* Amiodarone 200 MG TABLET PO SCH (07:49)
[2017-07-27] MEDS: Aspirin 81 MG TAB.CHEW PO SCH (07:49)
[2017-07-27] MEDS: Metoprolol XL (24 HR) Succ 50 MG TAB.ER.24H PO SCH (07:49)
[2017-07-27] MEDS: predniSONE 20 MG TABLET PO SCH (07:49)
[2017-07-27] MEDS: Isosorbide MONOnitrate (24 HR) 60 MG TAB.ER.24H PO SCH (07:49)
[2017-07-27] MEDS: Fluticasone Propionate Nasal 50 MCG/SPRAY BOTTLE NS SCH (07:50)
--- NOTE | 2017-07-27 09:02 | Nephrology Progress Note ---
Date of Encounter: 07/27/17 Time of Encounter: 08:59 - Assessment and Plan (1) Hyperkalemia Current Visit: Yes Status: Acute Vision is status post emergency hemodialysis in the setting of life-threatening hyperkalemia related to taking lisinopril and Aldactone in anti-inflammatory medications. Serum potassium is 5.2 today. Urine output is satisfactory. Creatinine is 2.48. Patient does not require dialysis today. If his renal function remains stable we will have the temporary dialysis catheter removed tomorrow. Noted decrease in his hemoglobin. This possibly could be related to the temporary dialysis catheter placement. If hemoglobin drops further consideration should be given to doing a CAT scan to rule out a retroperitoneal hematoma. (2) CKD (chronic kidney disease) stage 4, GFR 15-29 ml/min Current Visit: Yes Status: Acute (3) S/p TAVR (transcatheter aortic valve replacement), bioprosthetic Current Visit: No Status: Chronic (4) CAD (coronary artery disease) Current Visit: No Status: Chronic Qualifiers: Coronary Disease-Associated Artery/Lesion type: unspecified vessel or lesion type [place] vs. transplanted heart: [place] heart Associated angina: without angina Qualified Code(s): I25.10 - Atherosclerotic heart disease of [place] coronary artery without angina pectoris Subjective Interval history: Patient is experiencing some shortness of breath. Otherwise he voices no other complaints. His hemoglobin has dropped down to 7.1. Creatinine has increased compared to yesterday. He did have emergency dialysis Saturday evening because of life-threatening hyperkalemia the was not responding to medical treatment. Urine output is 1300 mL. Vital signs are stable. Objective - Vital Signs Vital signs: Vital Signs Temp Pulse Resp BP Pulse Ox 07/27/17 08:01 78 07/27/17 07:33 97.8 F 70 16 108/53 99 07/27/17 07:30 97.6 F 78 14 108/53 97 07/27/17 06:59 97.9 F 69 18 102/51 98 07/27/17 04:39 97.7 F 70 18 107/54 99 07/27/17 03:23 17 92 07/26/17 23:34 97.5 F L 65 18 112/49 99 07/26/17 21:52 20 98 07/26/17 19:33 97.6 F 71 18 116/45 94 07/26/17 15:39 16 91 07/26/17 15:33 97.6 F 72 17 106/46 95 07/26/17 10:51 17 97 07/26/17 10:21 99.3 F 70 17 107/53 100 07/26/17 09:00 78 Intake and Output 07/26/17 07/27/17 07/27/17 23:59 07:59 15:59 Intake Total 840 / 840 Output Total 625 / 625 Balance 215 / 215 Intake: Oral 840 / 840 Output: Urine 625 / 625 Other: Meal Dinner Percent of Meal Consumed 100% Weight 77.6 kg Patient Weight 07/27/17 23:59 Weight 77.6 kg - General Appearance Exam: Patient is alert and oriented. He is in no acute distress. Lung sounds otherwise clear. Heart regular rate and rhythm. Abdomen is benign. There is minimal lower extremity swelling. Patient is status post right above-knee amputation. There is a femoral dialysis catheter present. - Lab 07/27/17 03:55 07/27/17 03:55 Most recent lab results Calcium 8.0 mg/dL (8.6-10.8) L 07/27/17 03:55 Magnesium 1.6 mg/dL (1.6-2.6) 07/26/17 02:16 Consult Discharge Plan - Plan Referrals: Sujata Duffy DO [Primary Care Provider] -
[2017-07-27 10:51] LABS: Hepatitis B Surface Antibody 1.51 mIU/mL
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
[2017-07-27] MEDS: Budesonide/Formoterol 160/4.5 MDI IH SCH ×2 (10:53→22:04)
[2017-07-27] MEDS: Latanoprost 2.5 ML BOTTLE BOTH EYES SCH (17:08)
[2017-07-27] MEDS ORDERED: 0.9 % Sodium Chloride 250 ML ONE (18:06)
[2017-07-28] MEDS: Ipratropium/Albuterol Neb 3 ML IH SCH ×4 (03:57→21:22)
[2017-07-28 06:54] LABS: Albumin 2.4 g/dL (3.5-5.0); Albumin/Globulin Ratio 0.9 (1.1-2.2); Calcium 8.3 mg/dL (8.6-10.8); Globulin 2.8 g/dL (2.4-3.5); Mean Corpuscular HGB Conc 33.6 g/dL (31.6-35.5); Potassium 5.3 mEq/L (3.5-4.5); Total Protein 5.2 g/dL (6.0-8.3)
[2017-07-28 06:55] LABS: Bilirubin,Total 1.2 mg/dL (0.2-1.2)
[2017-07-28 06:57] LABS: Basophils % 0.2 %; Hematocrit 25.3 % (37.5-50.1); Hemoglobin 8.5 g/dL (12.9-16.9); Immature Granulocytes % 0.9 % (0-4); Immature Platelets 5.2 % (1.1-6.1); Lymphocytes # 1.2 K/mcL (0.6-4.6); Lymphocytes % 10.6 %; Mean Corpuscular Volume 89.4 fL (83.0-100.0); Mean Platelet Volume 10.9 fL (9.4-12.4); Monocytes # 0.5 K/mcL (0.0-1.3); Monocytes % 4.5 %; Neutrophils # 9.1 K/mcL (1.6-8.9); Red Blood Count 2.83 M/mcL (4.19-5.50); Red Cell Distribution Width 14.2 % (11.5-14.5); Segmented Neutrophils % 83.8 %
[2017-07-28 06:59] LABS: Platelet Count 67 K/mcL (140-400)
--- NOTE | 2017-07-28 07:45 | Nephrology Progress Note ---
Date of Encounter: 07/28/17 Time of Encounter: 07:43 - Assessment and Plan (1) Hyperkalemia Current Visit: Yes Status: Acute The patient's renal function is stable in his potassium is 5.3. Urine output is excellent. He no longer requires dialysis. We will remove the femoral dialysis catheter. Patient should remain off all angiotensin blockers, carbs, and potassium sparing diuretics, and potassium supplements indefinitely (2) CKD (chronic kidney disease) stage 4, GFR 15-29 ml/min Current Visit: Yes Status: Acute (3) S/p TAVR (transcatheter aortic valve replacement), bioprosthetic Current Visit: No Status: Chronic (4) CAD (coronary artery disease) Current Visit: No Status: Chronic Qualifiers: Coronary Disease-Associated Artery/Lesion type: unspecified vessel or lesion type [place] vs. transplanted heart: [place] heart Associated angina: without angina Qualified Code(s): I25.10 - Atherosclerotic heart disease of [place] coronary artery without angina pectoris Subjective Interval history: The patient reports she is having some arthritic pain in his left ankle. Otherwise he has no complaints. Renal function is stable and potassium is satisfactory. He no longer requires dialysis. We can have the temporary dialysis catheter removed from the left femoral vein. Objective - Vital Signs Vital signs: Vital Signs Temp Pulse Resp BP Pulse Ox 07/28/17 07:36 98.0 F 70 17 129/52 91 07/28/17 03:57 18 93 07/28/17 03:30 98.0 F 69 16 140/51 93 07/28/17 00:35 97.8 F 60 16 105/69 93 07/27/17 22:04 18 93 07/27/17 21:30 97.5 F L 60 17 120/48 07/27/17 19:07 98.5 F 62 16 118/50 98 07/27/17 18:49 98.2 F 14 106/46 97 07/27/17 18:34 98.1 F 70 14 120/42 07/27/17 16:23 12 96 07/27/17 11:17 98.1 F 68 12 99/37 96 07/27/17 10:54 16 108/53 98 07/27/17 09:00 98 07/27/17 08:01 78 Intake and Output 07/27/17 07/27/17 07/28/17 15:59 23:59 07:59 Intake Total 860 / 860 1425 / 1425 240 / 240 Output Total 450 / 450 900 / 900 650 / 650 Balance 410 / 410 525 / 525 -410 / -410 Intake: Oral 860 / 860 1105 / 1105 240 / 240 Blood Product 320 / 320 Rbcs Leuko Poor As-1 Unit 320 / 320 [id number] Output: Urine 550 / 550 650 / 650 Catheter 450 / 450 350 / 350 Other: Meal Lunch Dinner Percent of Meal Consumed 100% 100% Weight 77.6 kg 78.8 kg Patient Weight 07/28/17 23:59 Weight 78.8 kg - General Appearance Exam: Patient is alert and oriented. He is in no acute distress. Lungs coarse breath sounds. Heart regular rate and rhythm. Abdomen is benign. Patient is status post right above-knee amputation. There is minimal lower extremity swelling in the left lower extremity. There is a temporary dialysis catheter in the left femoral vein. - Lab 07/28/17 06:22 07/28/17 06:22 Most recent lab results Calcium 8.3 mg/dL (8.6-10.8) L 07/28/17 06:22 Magnesium 1.6 mg/dL (1.6-2.6) 07/26/17 02:16 Consult Discharge Plan - Plan Referrals: Sujata Duffy DO [Primary Care Provider] -
[2017-07-28] MEDS: *HR* Amiodarone 200 MG TABLET PO SCH (09:21)
[2017-07-28] MEDS: predniSONE 20 MG TABLET PO SCH (09:21)
[2017-07-28] MEDS: Isosorbide MONOnitrate (24 HR) 60 MG TAB.ER.24H PO SCH (09:21)
[2017-07-28] MEDS: Aspirin 81 MG TAB.CHEW PO SCH (09:21)
[2017-07-28] MEDS: Fluticasone Propionate Nasal 50 MCG/SPRAY BOTTLE NS SCH (09:22)
[2017-07-28] MEDS: Metoprolol XL (24 HR) Succ 50 MG TAB.ER.24H PO SCH (09:22)
[2017-07-28] MEDS: Budesonide/Formoterol 160/4.5 MDI IH SCH ×2 (10:42→21:22)
--- NOTE | 2017-07-28 13:37 | Internal Med Progress Note ---
<Kris Durán - Last Filed: 07/28/17 13:45> Date of Encounter: 07/28/17 Time of Encounter: 08:15 - Assessment and plan (1) Hyperkalemia Current Visit: Yes Status: Acute Assessment and plan: On arrival, pt demonstrates hyperkalemia in setting of Acei/Aldactone/NSAID use. In ED pt received kayexalate, b-agonist, calcium gluconate, 10U IV insulin, 1 amp D50 IV. No abnormal T waves on ECG. Potassium trended; 8.0, 7.9, 7.6, 6.9, urgent HD, 4.5, 5.2. Monitor BMP: BMP slowly increasing 5.2-->5.3 s/p HD. Will check tomorrow's labs , will avoid K+ retaining medications, supplements, diuretics, continue CKD managment with anti-hypertensives (is normotensive currently), possible Kayexalate daily. (2) Anemia Current Visit: Yes Status: Acute Assessment and plan: Daily H&H continues to trend down. Possible acute blood loss on chronic kidney disease. Possible source GI, retroperitoneal, no hematoma evident at femoral site. Considering CT r/u retroperitoneal hematoma. Transfused 1U Blood. Continue checking H&H AM 0400: 8.5, stable VSS. Qualifiers: Anemia type: due to chronic kidney disease Chronic kidney disease stage: stage 4 (severe) Qualified Code(s): N18.4 - Chronic kidney disease, stage 4 ( severe); D63.1 - Anemia in chronic kidney disease; D63.1 - Anemia in chronic kidney disease (3) CAD (coronary artery disease) Current Visit: No Status: Chronic Assessment and plan: No events on cardiac telemetry overnight. Continue with aspirin and Lipitor and metoprolol. Qualifiers: Coronary Disease-Associated Artery/Lesion type: unspecified vessel or lesion type [place] vs. transplanted heart: [place] heart Associated angina: without angina Qualified Code(s): I25.10 - Atherosclerotic heart disease of [place] coronary artery without angina pectoris (4) CKD (chronic kidney disease) stage 4, GFR 15-29 ml/min Current Visit: Yes Status: Acute Assessment and plan: Nephrology consulted, kidney injury in setting of CKD, likely due to diuretic use. (5) COPD (chronic obstructive pulmonary disease) Current Visit: No Status: Chronic Assessment and plan: Duoneb with RT, steroid. On 2L NC at home. Currently saturating >95% on 2L NC. Pt comfortable. Cont monitoring. Qualifiers: COPD type: emphysema Emphysema type: unspecified Qualified Code(s): J43.9 - Emphysema, unspecified (6) DVT prophylaxis Current Visit: No Status: Acute Assessment and plan: On pneumatic compression of L leg. Not anticoagulated due to history of GI bleed. - Subjective Interval history: Patient had his femoral catheter removed today, mild bleed after moving, resolved with pressure. Pt has no complaints, denies fatigue, lightheadedness, shortness of breath, palpitations. - Constitutional Vitals: Temp Pulse Resp BP Pulse Ox 98 F 66 17 123/60 91 07/28/17 11:17 07/28/17 11:31 07/28/17 11:17 07/28/17 11:17 07/28/17 11:17 General appearance: Present: A&O X 3, no acute distress - Head Head exam: Present: atraumatic - Respiratory Respiratory exam: Present: CTAB. Absent: respiratory distress - Cardiovascular Cardiovascular exam: Present: RRR, +S1, +S2 - GI/Abdominal GI/Abdominal exam: Present: no peritoneal signs. Absent: tenderness - External exam: Present: normal external exam Additional comments: s/p femoral HD cath, no hematoma, no ecchymosis - Expanded Lower Extremities Exam Lower Leg exam: Absent: tenderness (R AKA, no tenderness in L extremity, no swelling) Internal Medicine: Result - Labs CBC & Chem 7: 07/28/17 06:22 07/28/17 06:22 Labs: Short CBC 07/28/17 Range/Units 06:22 WBC 10.9 D (4.3-11.1) K/mcL Hgb 8.5 L (12.9-16.9) g/dL Hct 25.3 L (37.5-50.1) % Plt Count 67 L (140-400) K/mcL Neutrophils # 9.1 H (1.6-8.9) K/mcL BMP 07/28/17 06:22 Sodium 130 L Potassium 5.3 H Chloride 95 L Carbon Dioxide 31 H BUN 58 H Creatinine 2.22 H Glucose 91 Calcium 8.3 L Liver Function 07/28/17 Range/Units 06:22 Total Bilirubin 1.2 D (0.2-1.2) mg/dL AST 15 (5-34) Units/L ALT 27 (0-55) Units/L Alkaline Phosphatase 49 (38-126) Units/L Albumin 2.4 L (3.5-5.0) g/dL - ABG Interpretation ABG results: PT/INR, D-dimer PT 9.7 Seconds (9.4-12.1) 07/25/17 16:38 - Impressions Impressions Retroperitoneum Ultrasound 07/27/17 17:30 IMPRESSION: Unremarkable ultrasound of the kidneys and urinary bladder. D/ / Mart Lozano MD / Mart Lozano MD Interpreting Provider: Mart Lozano MD - VTE Documentation of Mechanical Device: Intermittent pneumatic compression device Consult Discharge Plan - Plan Referrals: Sujata Duffy DO [Primary Care Provider] - (PT IS FROM [facility] NO PCP APPOINTMENT IS NEEDED) <Maxwell Cunningham - Last Filed: 07/28/17 18:04> Date of Encounter: 07/28/17 - Assessment and plan (1) CAD (coronary artery disease) Current Visit: No Status: Chronic Qualifiers: Coronary Disease-Associated Artery/Lesion type: unspecified vessel or lesion type [place] vs. transplanted heart: [place] heart Associated angina: without angina Qualified Code(s): I25.10 - Atherosclerotic heart disease of [place] coronary artery without angina pectoris (2) Acute kidney injury superimposed on chronic kidney disease Current Visit: No Status: Acute (3) Anemia Current Visit: Yes Status: Acute Qualifiers: Anemia type: due to chronic kidney disease Chronic kidney disease stage: stage 4 (severe) Qualified Code(s): N18.4 - Chronic kidney disease, stage 4 ( severe); D63.1 - Anemia in chronic kidney disease; D63.1 - Anemia in chronic kidney disease (4) Hyperkalemia Current Visit: Yes Status: Acute (5) COPD (chronic obstructive pulmonary disease) Current Visit: Yes Status: Acute Qualifiers: COPD type: chronic bronchitis Chronic bronchitis type: simple Qualified Code(s): J41.0 - Simple chronic bronchitis (6) DVT prophylaxis Current Visit: No Status: Acute - Constitutional Vitals: Temp Pulse Resp BP Pulse Ox 97.6 F 66 16 111/46 90 07/28/17 16:05 07/28/17 16:05 07/28/17 16:22 07/28/17 17:00 07/28/17 16:22 Internal Medicine: Result - Labs CBC & Chem 7: 07/28/17 06:22 07/28/17 06:22 Labs: Short CBC 07/28/17 Range/Units 06:22 WBC 10.9 D (4.3-11.1) K/mcL Hgb 8.5 L (12.9-16.9) g/dL Hct 25.3 L (37.5-50.1) % Plt Count 67 L (140-400) K/mcL Neutrophils # 9.1 H (1.6-8.9) K/mcL BMP 07/28/17 06:22 Sodium 130 L Potassium 5.3 H Chloride 95 L Carbon Dioxide 31 H BUN 58 H Creatinine 2.22 H Glucose 91 Calcium 8.3 L Liver Function 07/28/17 Range/Units 06:22 Total Bilirubin 1.2 D (0.2-1.2) mg/dL AST 15 (5-34) Units/L ALT 27 (0-55) Units/L Alkaline Phosphatase 49 (38-126) Units/L Albumin 2.4 L (3.5-5.0) g/dL - ABG Interpretation ABG results: PT/INR, D-dimer PT 9.7 Seconds (9.4-12.1) 07/25/17 16:38 - Impressions Impressions Retroperitoneum Ultrasound 07/27/17 17:30 IMPRESSION: Unremarkable ultrasound of the kidneys and urinary bladder. D/ / Mart Lozano MD / Mart Lozano MD Interpreting Provider: Mart Lozano MD - Attending Attestation I conducted a face to face diagnostic evaluation of this patient and my medical decision-making was reviewed with the Resident Physician, Dr. Kris Durán. I agree with the documented findings, disposition and treatment plan as described except to the extent set forth below: Continue conservative management. Repeat BMP in the morning. If potassium rises he will need to be discharged with daily oral Kayexalate and close follow- up.
[2017-07-28] MEDS: Acetaminophen 325 MG TABLET PO PRN (14:39)
[2017-07-28] MEDS: Latanoprost 2.5 ML BOTTLE BOTH EYES SCH (16:57)
[2017-07-29] MEDS: Ipratropium/Albuterol Neb 3 ML IH SCH ×4 (03:45→21:29)
[2017-07-29 06:24] LABS: Basophils % 0.1 %; Hematocrit 26.7 % (37.5-50.1); Hemoglobin 8.7 g/dL (12.9-16.9); Immature Granulocytes % 1.1 % (0-4); Lymphocytes # 1.1 K/mcL (0.6-4.6); Lymphocytes % 6.6 %; Mean Corpuscular HGB Conc 32.6 g/dL (31.6-35.5); Mean Corpuscular Hemoglobin 29.6 pg (28.0-33.3); Mean Corpuscular Volume 90.8 fL (83.0-100.0); Mean Platelet Volume 9.9 fL (9.4-12.4); Monocytes # 0.7 K/mcL (0.0-1.3); Monocytes % 3.9 %; Neutrophils # 15.2 K/mcL (1.6-8.9); Platelet Count 70 K/mcL (140-400); Red Blood Count 2.94 M/mcL (4.19-5.50); Red Cell Distribution Width 14.2 % (11.5-14.5); Segmented Neutrophils % 88.3 %
[2017-07-29 06:35] LABS: Albumin 2.5 g/dL (3.5-5.0); Albumin/Globulin Ratio 0.8 (1.1-2.2); Bilirubin,Total 0.7 mg/dL (0.2-1.2); Calcium 8.2 mg/dL (8.6-10.8); Globulin 3.1 g/dL (2.4-3.5); Potassium 5.6 mEq/L (3.5-4.5); Total Protein 5.6 g/dL (6.0-8.3)
[2017-07-29] MEDS: Isosorbide MONOnitrate (24 HR) 60 MG TAB.ER.24H PO SCH (08:35)
[2017-07-29] MEDS: Aspirin 81 MG TAB.CHEW PO SCH (08:35)
[2017-07-29] MEDS: Metoprolol XL (24 HR) Succ 50 MG TAB.ER.24H PO SCH (08:35)
[2017-07-29] MEDS: predniSONE 20 MG TABLET PO SCH (08:36)
[2017-07-29] MEDS: *HR* Amiodarone 200 MG TABLET PO SCH (08:36)
[2017-07-29] MEDS: Fluticasone Propionate Nasal 50 MCG/SPRAY BOTTLE NS SCH (08:45)
[2017-07-29] MEDS: Budesonide/Formoterol 160/4.5 MDI IH SCH ×2 (11:50→21:29)
[2017-07-29 13:15] LABS: VBG HCO3 27 mEq/L (21-27); VBG PCO2 48 mmHg (41-51); VBG PH 7.36 pH Units (7.32-7.42); VBG PO2 48 mmHg (25-50)
--- NOTE | 2017-07-29 14:10 | Internal Med Progress Note ---
<Kris Durán - Last Filed: 07/29/17 15:08> Date of Encounter: 07/29/17 Time of Encounter: 09:00 - Assessment and plan (1) Hyperkalemia Current Visit: Yes Status: Acute Assessment and plan: On arrival, pt demonstrates hyperkalemia in setting of Acei/Aldactone/NSAID use. In ED pt received kayexalate, b-agonist, calcium gluconate, 10U IV insulin, 1 amp D50 IV. No abnormal T waves on ECG. Potassium trended; 8.0, 7.9, 7.6, 6.9, urgent HD, 4.5, 5.2. Monitor BMP: BMP slowly increasing 5.2-->5.3 s/p HD. 5.6 Today. Continue to avoid K+ retaining medications, supplements, diuretics, continue CKD managment with anti-hypertensives (is normotensive currently) Kayexalate 30mg today. Possible regimen on discharge. Working up for possible RTA 4, possible hypoaldosteronism - Renin, Aldosterone, Cortisol, VBG. (2) Anemia Current Visit: Yes Status: Acute Assessment and plan: VSS, no hypotension, H&H stabilized, no acute bleed. Qualifiers: Anemia type: due to chronic kidney disease Chronic kidney disease stage: stage 4 (severe) Qualified Code(s): N18.4 - Chronic kidney disease, stage 4 ( severe); D63.1 - Anemia in chronic kidney disease; D63.1 - Anemia in chronic kidney disease (3) CAD (coronary artery disease) Current Visit: No Status: Chronic Assessment and plan: Continue with aspirin and Lipitor and metoprolol, metoprolol increased to 75mg. Qualifiers: Coronary Disease-Associated Artery/Lesion type: unspecified vessel or lesion type [place] vs. transplanted heart: [place] heart Associated angina: without angina Qualified Code(s): I25.10 - Atherosclerotic heart disease of [place] coronary artery without angina pectoris (4) CKD (chronic kidney disease) stage 4, GFR 15-29 ml/min Current Visit: Yes Status: Acute Assessment and plan: Nephrology consulted, kidney injury in setting of CKD, likely due to diuretic use. (5) COPD (chronic obstructive pulmonary disease) Current Visit: No Status: Chronic Assessment and plan: Duoneb with RT, steroid. On 2L NC at home. Currently saturating >95% on 2L NC. Pt comfortable. Cont monitoring. Qualifiers: COPD type: emphysema Emphysema type: unspecified Qualified Code(s): J43.9 - Emphysema, unspecified (6) DVT prophylaxis Current Visit: No Status: Acute Assessment and plan: On pneumatic compression of L leg. Not anticoagulated due to history of GI bleed. - Subjective Interval history: Pt continues to have no complaints, denies fatigue, lightheadedness, shortness of breath, palpitations, flank pain, altered mentation. - Constitutional Vitals: Temp Pulse Resp BP Pulse Ox 97.9 F 63 20 114/58 94 07/29/17 11:19 07/29/17 11:19 07/29/17 11:52 07/29/17 11:19 07/29/17 11:52 General appearance: Present: A&O X 3, no acute distress - Head Head exam: Present: atraumatic - Respiratory Respiratory exam: Present: CTAB. Absent: rhonchi - Cardiovascular Cardiovascular exam: Present: RRR, +S1, +S2 - GI/Abdominal GI/Abdominal exam: Present: no peritoneal signs. Absent: tenderness - exam: Present: normal inspection (L femoral cath removed, no mass effect) Internal Medicine: Result - Labs CBC & Chem 7: 07/29/17 06:06 07/29/17 06:06 Labs: Short CBC 07/29/17 Range/Units 06:06 WBC 17.2 H D (4.3-11.1) K/mcL Hgb 8.7 L (12.9-16.9) g/dL Hct 26.7 L (37.5-50.1) % Plt Count 70 L (140-400) K/mcL Neutrophils # 15.2 H (1.6-8.9) K/mcL BMP 07/29/17 06:06 Sodium 129 L Potassium 5.6 H Chloride 97 L Carbon Dioxide 25 BUN 52 H Creatinine 2.01 H Glucose 102 H Calcium 8.2 L Liver Function 07/29/17 Range/Units 06:06 Total Bilirubin 0.7 (0.2-1.2) mg/dL AST 14 (5-34) Units/L ALT 29 (0-55) Units/L Alkaline Phosphatase 53 (38-126) Units/L Albumin 2.5 L (3.5-5.0) g/dL - ABG Interpretation ABG results: PT/INR, D-dimer PT 9.7 Seconds (9.4-12.1) 07/25/17 16:38 - VTE Documentation of Mechanical Device: Intermittent pneumatic compression device Consult Discharge Plan - Plan Referrals: Sujata Duffy DO [Primary Care Provider] - (PT IS FROM [facility] NO PCP APPOINTMENT IS NEEDED) <Maxwell Cunningham - Last Filed: 07/29/17 17:18> Date of Encounter: 07/29/17 - Assessment and plan (1) CAD (coronary artery disease) Current Visit: No Status: Chronic Qualifiers: Coronary Disease-Associated Artery/Lesion type: unspecified vessel or lesion type [place] vs. transplanted heart: [place] heart Associated angina: without angina Qualified Code(s): I25.10 - Atherosclerotic heart disease of [place] coronary artery without angina pectoris (2) Acute kidney injury superimposed on chronic kidney disease Current Visit: No Status: Acute (3) Anemia Current Visit: Yes Status: Acute Qualifiers: Anemia type: due to chronic kidney disease Chronic kidney disease stage: stage 4 (severe) Qualified Code(s): N18.4 - Chronic kidney disease, stage 4 ( severe); D63.1 - Anemia in chronic kidney disease; D63.1 - Anemia in chronic kidney disease (4) Hyperkalemia Current Visit: Yes Status: Acute (5) COPD (chronic obstructive pulmonary disease) Current Visit: Yes Status: Acute Qualifiers: COPD type: chronic bronchitis Chronic bronchitis type: simple Qualified Code(s): J41.0 - Simple chronic bronchitis (6) DVT prophylaxis Current Visit: No Status: Acute - Constitutional Vitals: Temp Pulse Resp BP Pulse Ox 97.9 F 68 18 115/56 95 07/29/17 15:26 07/29/17 15:26 07/29/17 16:18 07/29/17 15:26 07/29/17 16:18 Internal Medicine: Result - Labs CBC & Chem 7: 07/29/17 06:06 07/29/17 06:06 Labs: Short CBC 07/29/17 Range/Units 06:06 WBC 17.2 H D (4.3-11.1) K/mcL Hgb 8.7 L (12.9-16.9) g/dL Hct 26.7 L (37.5-50.1) % Plt Count 70 L (140-400) K/mcL Neutrophils # 15.2 H (1.6-8.9) K/mcL BMP 07/29/17 06:06 Sodium 129 L Potassium 5.6 H Chloride 97 L Carbon Dioxide 25 BUN 52 H Creatinine 2.01 H Glucose 102 H Calcium 8.2 L Liver Function 07/29/17 Range/Units 06:06 Total Bilirubin 0.7 (0.2-1.2) mg/dL AST 14 (5-34) Units/L ALT 29 (0-55) Units/L Alkaline Phosphatase 53 (38-126) Units/L Albumin 2.5 L (3.5-5.0) g/dL - ABG Interpretation ABG results: PT/INR, D-dimer PT 9.7 Seconds (9.4-12.1) 07/25/17 16:38 - Attending Attestation I conducted a face to face diagnostic evaluation of this patient and my medical decision-making was reviewed with the Resident Physician, Dr. Kris Durán. I agree with the documented findings, disposition and treatment plan as described except to the extent set forth below: Patient reports mild to moderate constipation. He has not not had a bowel movement for the last 2 days. Laboratory evaluation today reveals rising serum potassium with a stabilized creatinine. Sodium is trending down. Given his electrolytes hands and low blood pressure and concerned of hypoaldosteronism and therefore will order aldosterone level plasma renin activity. We will give 1 dose of Kayexalate and recheck potassium morning.
[2017-07-29] MEDS: Latanoprost 2.5 ML BOTTLE BOTH EYES SCH (17:24)
[2017-07-29 18:20] LABS: Calcium 8.4 mg/dL (8.6-10.8); Potassium 5.3 mEq/L (3.5-4.5)
[2017-07-30 01:40] LABS: CK-BB (CK isoenzymes) 0 % (0-0); CK-MB (CK isoenzymes) 0 % (0-4); CK-MM (CK-isoenzymes) 100 % (96-100)
[2017-07-30 01:40] LABS: CK-BB (CK isoenzymes) 0 % (0-0); CK-MB (CK isoenzymes) 0 % (0-4); CK-MM (CK-isoenzymes) 100 % (96-100)
[2017-07-30] MEDS: Ipratropium/Albuterol Neb 3 ML IH SCH ×2 (03:41→11:26)
[2017-07-30 04:13] LABS: Calcium 8.1 mg/dL (8.6-10.8); Potassium 4.9 mEq/L (3.5-4.5)
[2017-07-30 08:10] LABS: Hemoglobin 7.8 g/dL (12.9-16.9); Mean Corpuscular Volume 91.5 fL (83.0-100.0); Red Cell Distribution Width 14.3 % (11.5-14.5)
[2017-07-30 08:12] LABS: Hematocrit 23.6 % (37.5-50.1); Immature Platelets 6.9 % (1.1-6.1); Mean Corpuscular HGB Conc 33.1 g/dL (31.6-35.5); Mean Corpuscular Hemoglobin 30.2 pg (28.0-33.3); Mean Platelet Volume 11.6 fL (9.4-12.4); Red Blood Count 2.58 M/mcL (4.19-5.50)
[2017-07-30 08:13] LABS: CK Total (Ck Isoenzymes) 87 U/L (20-200)
[2017-07-30 08:14] LABS: CK Total (Ck Isoenzymes) 82 U/L (20-200)
[2017-07-30 08:15] LABS: Platelet Count 66 K/mcL (140-400)
[2017-07-30 08:40] LABS: Basophilic Stippling 1+ (Not Present); Burr Cells 1+ (Not Present); Lymphocytes # 0.3 K/mcL (0.6-4.6); Monocytes # 0.3 K/mcL (0.0-1.3); Neutrophils # 14.9 K/mcL (1.6-8.9); Platelet Estimate Marked Decrease (Normal); Polychromasia 1+ (Not Present)
[2017-07-30] MEDS: predniSONE 20 MG TABLET PO SCH (09:00)
[2017-07-30] MEDS: Aspirin 81 MG TAB.CHEW PO SCH (09:00)
[2017-07-30] MEDS: Isosorbide MONOnitrate (24 HR) 60 MG TAB.ER.24H PO SCH (09:00)
[2017-07-30] MEDS: Fluticasone Propionate Nasal 50 MCG/SPRAY BOTTLE NS SCH (09:01)
[2017-07-30] MEDS: *HR* Amiodarone 200 MG TABLET PO SCH (09:01)
[2017-07-30] MEDS: Metoprolol XL (24 HR) Succ 50 MG TAB.ER.24H PO SCH (09:01)
--- NOTE | 2017-07-30 09:41 | Nephrology Progress Note ---
Date of Encounter: 07/30/17 Time of Encounter: 09:20 - Assessment and Plan (1) Hyperkalemia Current Visit: Yes Status: Acute Renal fct stable. K 4.9. Will sign off. Will follow in office. Subjective Interval history: Watching tv. Thinks may be going back to nursing facility. No new complaints Objective - Vital Signs Vital signs: Vital Signs Temp Pulse Resp BP Pulse Ox 07/30/17 07:47 98.5 F 65 20 107/50 95 07/30/17 03:51 98.3 F 64 16 110/58 98 07/30/17 03:41 20 92 07/30/17 00:43 97.8 F 67 15 126/53 93 07/29/17 21:29 18 94 07/29/17 19:00 98 F 71 16 121/56 95 07/29/17 16:18 18 95 07/29/17 15:26 97.9 F 68 18 115/56 90 07/29/17 11:52 20 94 07/29/17 11:19 97.9 F 63 18 114/58 94 Intake and Output 07/29/17 07/30/17 07/30/17 23:59 07:59 15:59 Intake Total 420 / 420 640 / 640 480 / 480 Output Total 750 / 750 375 / 375 450 / 450 Balance -330 / -330 265 / 265 30 / 30 Intake: Oral 420 / 420 640 / 640 480 / 480 Output: Urine 750 / 750 375 / 375 450 / 450 Other: Meal Dinner Breakfast Percent of Meal Consumed 80% 75% Stool Size Large Stool Consistency loose soft Stool Color Brown Weight 80.2 kg Patient Weight 07/30/17 23:59 Weight 80.2 kg - General Appearance General appearance: Present: well-developed, well-nourished, appears started age , obese EENT: Present: mucous membranes moist Neck: Present: no JVD Respiratory: Present: clear Cardiology: Present: no edema, regular rate, regular rhythm Additional Comments: right AKA Gastrointestinal: Present: normoactive bowel sounds, no tenderness Integumentary: Present: warm and dry Psychiatric: Present: mood/affect appropriate, cooperative - Lab 07/30/17 03:37 07/30/17 03:37 Most recent lab results Calcium 8.1 mg/dL (8.6-10.8) L 07/30/17 03:37 Magnesium 1.6 mg/dL (1.6-2.6) 07/26/17 02:16 - VTE Documentation of Mechanical Device: Intermittent pneumatic compression device Consult Discharge Plan - Plan Referrals: Sujata Duffy DO [Primary Care Provider] - (PT IS FROM [facility] NO PCP APPOINTMENT IS NEEDED)
[2017-07-30] MEDS ORDERED: levoFLOXacin 750 MG TABLET PO SCH (09:45)
--- NOTE | 2017-07-30 09:46 | Internal Med Progress Note ---
Date of Encounter: 07/30/17 Time of Encounter: 09:46 - Assessment and plan (1) Hyperkalemia Current Visit: Yes Status: Acute (2) Anemia Current Visit: Yes Status: Acute Qualifiers: Anemia type: due to chronic kidney disease Chronic kidney disease stage: stage 4 (severe) Qualified Code(s): N18.4 - Chronic kidney disease, stage 4 ( severe); D63.1 - Anemia in chronic kidney disease; D63.1 - Anemia in chronic kidney disease (3) CAD (coronary artery disease) Current Visit: No Status: Chronic Qualifiers: Coronary Disease-Associated Artery/Lesion type: unspecified vessel or lesion type [place] vs. transplanted heart: [place] heart Associated angina: without angina Qualified Code(s): I25.10 - Atherosclerotic heart disease of [place] coronary artery without angina pectoris (4) CKD (chronic kidney disease) stage 4, GFR 15-29 ml/min Current Visit: Yes Status: Acute (5) COPD (chronic obstructive pulmonary disease) Current Visit: No Status: Chronic Qualifiers: COPD type: emphysema Emphysema type: unspecified Qualified Code(s): J43.9 - Emphysema, unspecified (6) DVT prophylaxis Current Visit: No Status: Acute - Subjective Interval history: Pt reports mild constipation, given Kayelaxate for potassium and off-label cathartic. Has non-production cough intermittently during encounter, does not complain of shortness of breath. No other complaints. - Constitutional Vitals: Temp Pulse Resp BP Pulse Ox 98.5 F 65 20 107/50 95 07/30/17 07:47 07/30/17 07:47 07/30/17 07:47 07/30/17 07:47 07/30/17 07:47 General appearance: Present: A&O X 3, no acute distress - Head Head exam: Present: atraumatic Internal Medicine: Result - Labs CBC & Chem 7: 07/30/17 03:37 07/30/17 03:37 Labs: Short CBC 07/30/17 Range/Units 03:37 WBC 15.5 H (4.3-11.1) K/mcL Hgb 7.8 L (12.9-16.9) g/dL Hct 23.6 L (37.5-50.1) % Plt Count 66 L (140-400) K/mcL Neutrophils # 14.9 H (1.6-8.9) K/mcL BMP 07/29/17 07/30/17 17:56 03:37 Sodium 134 L 131 L Potassium 5.3 H 4.9 H Chloride 98 98 Carbon Dioxide 26 27 BUN 52 H 48 H Creatinine 2.00 H 1.85 H Glucose 183 H 125 H Calcium 8.4 L 8.1 L Cardiac Enzymes 07/25/17 07/26/17 Range/Units 22:13 02:16 CK-MB (CK-2) 0 0 (0-4) % - ABG Interpretation ABG results: PT/INR, D-dimer PT 9.7 Seconds (9.4-12.1) 07/25/17 16:38 - Impressions Impressions Chest X-Ray 07/30/17 08:13 IMPRESSION: 1. Stable enlarged heart size. 2. Questioned interval progression of a mild hiatal hernia seen on prior CT thorax 12/31/2016. This could be further evaluated with CT. 3. Mild nonspecific patchy lung base atelectasis versus pneumonia. D/ /30/2017 09:03:54 Luis Alberto Gonzalez MD / [email or web address] Interpreting Provider: Luis Alberto Gonzalez MD - VTE Documentation of Mechanical Device: Intermittent pneumatic compression device Consult Discharge Plan - Plan Referrals: Sujata Duffy DO [Primary Care Provider] - (PT IS FROM [facility] NO PCP APPOINTMENT IS NEEDED)
[2017-07-30] MEDS: Acetaminophen 325 MG TABLET PO PRN (10:42)
[2017-07-30] MEDS: Budesonide/Formoterol 160/4.5 MDI IH SCH (11:26)
[2017-07-30 12:01] VITALS: BP 130/50
--- NOTE | 2017-07-30 14:31 | Discharge Summary ---
<Kris Durán - Last Filed: 07/30/17 14:52> Date of Encounter: 07/30/17 Time of Encounter: 09:46 - Discharge Diagnosis (1) Hyperkalemia Priority: Primary Status: Acute (2) Anemia Priority: Secondary Status: Acute Qualifiers: Anemia type: due to chronic kidney disease Chronic kidney disease stage: stage 4 (severe) Qualified Code(s): N18.4 - Chronic kidney disease, stage 4 ( severe); D63.1 - Anemia in chronic kidney disease; D63.1 - Anemia in chronic kidney disease (3) CAD (coronary artery disease) Priority: Secondary Status: Chronic Qualifiers: Coronary Disease-Associated Artery/Lesion type: unspecified vessel or lesion type [place] vs. transplanted heart: [place] heart Associated angina: without angina Qualified Code(s): I25.10 - Atherosclerotic heart disease of [place] coronary artery without angina pectoris (4) CKD (chronic kidney disease) stage 4, GFR 15-29 ml/min Priority: Secondary Status: Acute (5) COPD (chronic obstructive pulmonary disease) Priority: Secondary Status: Chronic Qualifiers: COPD type: emphysema Emphysema type: unspecified Qualified Code(s): J43.9 - Emphysema, unspecified (6) DVT prophylaxis Priority: Secondary Status: Acute - Discharge Medications Home Medications: Aspirin 81 mg PO DAILY 06/15/15 [History] Clopidogrel [Plavix] 75 mg PO DAILY 06/15/15 [History] Fluticasone Propionate Nasal [Flonase] 100 mcg NS DAILY 06/15/15 [History] Pantoprazole Sodium [Protonix] 40 mg PO DAILY 06/15/15 [History] Polyethylene Glycol 3350 [MiraLAX] 17 gm PO DAILY PRN 09/05/15 [History] Atorvastatin Calcium [Lipitor] 80 mg PO DAILY 06/09/16 [History] Fluticasone/Salmeterol [Advair Hfa 230-21 Mcg Inhaler] 2 puff IH BID 06/09/16 [ History] Metoprolol Succinate 200 mg PO DAILY #0 06/09/16 [History] Tamsulosin [Flomax] 0.4 mg PO DAILY 06/09/16 [History] Amiodarone [Cordarone] 100 mg PO DAILY 06/15/17 [History] Isosorbide MONOnitrate (24 HR) [Imdur] 60 mg PO DAILY 06/15/17 [History] levoFLOXacin [Levaquin] 500 mg PO Q48H #7 tablet 06/18/17 [Rx] Albuterol Neb [Proventil Neb] 2.5 mg IH Q4HR PRN 07/25/17 [History] Albuterol Sulfate [Ventolin Hfa] 2 puff IH Q4H PRN 07/25/17 [History] Furosemide [Lasix] 20 mg PO BID 07/25/17 [History] Guaifenesin [Mucinex] 600 mg PO BID 07/25/17 [History] Magnesium Oxide [Mag-Ox] 400 mg PO DAILY 07/25/17 [History] Meloxicam [Mobic] 7.5 mg PO BID 07/25/17 [History] Multivitamin [Flintstones] 1 tab PO DAILY 07/25/17 [History] Polyethylene Glycol 3350 [MiraLAX] 17 gm PO DAILY 07/25/17 [History] Travoprost [Travatan Z] 1 drop OP QPM 07/25/17 [History] predniSONE [PredniSONE] 40 mg PO DAILY 07/25/17 [History] Allergies/Adverse Reactions: 3 Allergy/AdvReac Type Severity Reaction Status Date / Time No Known Allergies Allergy Verified 08/21/16 11:18 Procedures/tests Complete & Pending: Procedures Performed prior 72 hours Category Date Time Status US retroperitoneal comp [US] Routine Exams 07/27/17 17:30 Completed Date of admission: 07/25/17 20:39 Primary care physician: Sujata Duffy DO Consults: 07/26/17 00:00 Consult to Dialysis [CONS] ONCE 07/27/17 00:00 Consult to Dialysis [CONS] ONCE 07/27/17 17:42 Consult to Wound Care [CONS] Routine Reason for Consult: Skin tear on left buttock, 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 Call Completed: No - Patient Status Disposition: Transfer SNF Condition: Fair Functional capacity at discharge: wheelchair bound Overall status at discharge: patient is progressing back to baseline - Discharge Instructions Instructions: Chronic Obstructive Pulmonary Disease (DC) Follow Up With: Moiz Ramos DO [Non-Partnered Physician] - (OFFICE WILL CALL [facility] WITH AN APPOINTMENT PER STEPHANE AT DR. MENDOZA OFFICE) Sujata Duffy DO [Primary Care Provider] - (PT IS FROM [facility] NO PCP APPOINTMENT IS NEEDED) Additional Instructions: Pt's K+ sparing diuretic, FRANCISCO-i, ARB have been discontinued with Nephrology recommendation; discharging with Kayexalate Rx 15mg qMWF, to f/u with Nephrology within 2 weeks to assess K+ s/p discharge. - Diet and Activity Activity: increase activity as tolerated Diet: advance to your usual diet Hospital course: Mr. Swartz is a 82 year old male, past medical history of COPD, CAD, HTN, paroxysmal AFib on amiodarone, AICD, who presented to ED with potassium of 8.0. ED course involved calcium gluconate, insulin, kayexalate, and ultimately nephrology consult with emergent hemodialysis. ECG remained paced, with no T wave abnormalities through admission. Pt's K+ came down to 4.5 on day 1, and slowly increased to 5.2, 5.3, 5.6 after 3 days. Patient did not require hemodialysis subsequently, Nephrology recommending indefinite discontinuation of FRANCISCO-i, ARB, potassium sparing diuretics, or K+ supplementation. Will discharge pt with prescription for Kayexalate 15g to take MWF. Pt is to follow- up with Nephrology within 2 weeks with assessment of potassium status. He is usp bound and will be discharged today. - Time Spent with Patient Total time spent providing and/or coordinating discharge services: - Constitutional Vitals: Temp Pulse Resp BP Pulse Ox 97.9 F 82 16 130/50 93 07/30/17 12:00 07/30/17 12:00 07/30/17 12:00 07/30/17 12:00 07/30/17 12:00 General appearance: Present: A&O X 3, no acute distress - Head Head exam: Present: atraumatic - Eye Eye exam: Present: EOMI - ENT ENT exam: Present: normal external ear exam Additional comments: severely hard of hearing - Neck Neck exam general surgery: Present: full ROM - Respiratory Respiratory exam: Absent: chest wall tenderness Additional comments: bibasilar mild rhonchi - Cardiovascular Cardiovascular exam: Present: RRR, +S1, +S2. Absent: systolic murmur - Neurological Exam Neurological exam: Present: oriented X3. Absent: pronater drift, facial droop - VTE Documentation of Mechanical Device: Intermittent pneumatic compression device <Jose Greenwood - Last Filed: 07/30/17 17:39> Date of Encounter: 07/30/17 - Discharge Diagnosis (1) Hyperkalemia Status: Resolved (2) Anemia Status: Chronic Qualifiers: Anemia type: due to chronic kidney disease Chronic kidney disease stage: stage 4 (severe) Qualified Code(s): N18.4 - Chronic kidney disease, stage 4 ( severe); D63.1 - Anemia in chronic kidney disease; D63.1 - Anemia in chronic kidney disease (3) CAD (coronary artery disease) Status: Chronic Qualifiers: Coronary Disease-Associated Artery/Lesion type: [place] artery [place] vs. transplanted heart: [place] heart Associated angina: without angina Qualified Code(s): I25.10 - Atherosclerotic heart disease of [place] coronary artery without angina pectoris (4) COPD (chronic obstructive pulmonary disease) Priority: Secondary Status: Chronic Qualifiers: COPD type: chronic bronchitis Chronic bronchitis type: simple Qualified Code(s): J41.0 - Simple chronic bronchitis (5) Atrial fibrillation Priority: Secondary Status: Chronic Qualifiers: Atrial fibrillation type: paroxysmal Qualified Code(s): I48.0 - Paroxysmal atrial fibrillation (6) Chronic systolic (congestive) heart failure Priority: Secondary Status: Chronic (7) Hypertension Priority: Secondary Status: Chronic Qualifiers: Hypertension type: essential hypertension Qualified Code(s): I10 - Essential (primary) hypertension Procedures/tests Complete & Pending: Procedures Performed prior 72 hours Category Date Time Status US retroperitoneal comp [US] Routine Exams 07/27/17 17:30 Completed Date of admission: 07/25/17 20:39 Primary care physician: Sujata Duffy DO Consults: 07/26/17 00:00 Consult to Dialysis [CONS] ONCE 07/27/17 00:00 Consult to Dialysis [CONS] ONCE 07/27/17 17:42 Consult to Wound Care [CONS] Routine Reason for Consult: Skin tear on left buttock, 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 Call Completed: No Hospital course: Mr. Swartz is a 82 year old male - Time Spent with Patient Total time spent providing and/or coordinating discharge services: - Constitutional Vitals: Temp Pulse Resp BP Pulse Ox 97.9 F 82 16 130/50 93 07/30/17 12:00 07/30/17 12:00 07/30/17 12:00 07/30/17 12:00 07/30/17 12:00 - Attending Attestation I examined this patient and my medical decision-making was reviewed with the Resident Physician on 07/30/17. I agree with the documented findings, disposition and treatment plan as described except to the extent set forth below. Mr Swartz has been admitted for hyperkalemia. He had urgent dialysis and has steadily improved. He is now afebrile with stable vitals. He is to be discharged to SNF for further care. Exam Alert. Comfortable Heart irreg Lungs diminished Abd soft Plan D/C to SNF today.
--- NOTE | 2017-07-30 14:52 | Physician Discharge Referral ---
ExtendedCare Referral Info Transfer To: SNF/ECF Provider in Charge: Dr. Jose Greenwood Provider in Charge after Transfer: PCP Institutional Level of Care: Intermediate - Diagnosis (1) Hyperkalemia Priority: Primary Status: Acute (2) Anemia Priority: Secondary Status: Acute (3) CAD (coronary artery disease) Priority: Secondary Status: Chronic (4) CKD (chronic kidney disease) stage 4, GFR 15-29 ml/min Priority: Secondary Status: Acute (5) COPD (chronic obstructive pulmonary disease) Priority: Secondary Status: Chronic (6) DVT prophylaxis Priority: Secondary Status: Acute Prognosis: Good Aware of Diagnosis: Patient, Family Aware of Prognosis: Patient, Family - Transfer Medications Prescriptions: Sodium Polystyrene Sulfonate [Kayexalate] 15 gm PO QMWF #12 bottle Home Medications: Aspirin 81 mg PO DAILY 06/15/15 [History] Clopidogrel [Plavix] 75 mg PO DAILY 06/15/15 [History] Fluticasone Propionate Nasal [Flonase] 100 mcg NS DAILY 06/15/15 [History] Pantoprazole Sodium [Protonix] 40 mg PO DAILY 06/15/15 [History] Polyethylene Glycol 3350 [MiraLAX] 17 gm PO DAILY PRN 09/05/15 [History] Atorvastatin Calcium [Lipitor] 80 mg PO DAILY 06/09/16 [History] Fluticasone/Salmeterol [Advair Hfa 230-21 Mcg Inhaler] 2 puff IH BID 06/09/16 [ History] Metoprolol Succinate 200 mg PO DAILY #0 06/09/16 [History] Tamsulosin [Flomax] 0.4 mg PO DAILY 06/09/16 [History] Amiodarone [Cordarone] 100 mg PO DAILY 06/15/17 [History] Isosorbide MONOnitrate (24 HR) [Imdur] 60 mg PO DAILY 06/15/17 [History] levoFLOXacin [Levaquin] 500 mg PO Q48H #7 tablet 06/18/17 [Rx] Albuterol Neb [Proventil Neb] 2.5 mg IH Q4HR PRN 07/25/17 [History] Albuterol Sulfate [Ventolin Hfa] 2 puff IH Q4H PRN 07/25/17 [History] Furosemide [Lasix] 20 mg PO BID 07/25/17 [History] Guaifenesin [Mucinex] 600 mg PO BID 07/25/17 [History] Magnesium Oxide [Mag-Ox] 400 mg PO DAILY 07/25/17 [History] Meloxicam [Mobic] 7.5 mg PO BID 07/25/17 [History] Multivitamin [Flintstones] 1 tab PO DAILY 07/25/17 [History] Polyethylene Glycol 3350 [MiraLAX] 17 gm PO DAILY 07/25/17 [History] Travoprost [Travatan Z] 1 drop OP QPM 07/25/17 [History] predniSONE [PredniSONE] 40 mg PO DAILY 07/25/17 [History] Sodium Polystyrene Sulfonate [Kayexalate] 15 gm PO QMWF #12 bottle 07/30/17 [Rx] Allergies/Adverse Reactions: 3 Allergy/AdvReac Type Severity Reaction Status Date / Time No Known Allergies Allergy Verified 08/21/16 11:18 - Respiratory Orders Smoking Cessation: Smoking cessation has been advised. For more information, call the [place] Tobacco Quit Line at 0-267-KQEE-NOW. CERTIFICATION: I certify that the transfer of the above named patient to an Extended Care Facility is necessary for the continuing treatment of the diagnosis listed. The above information is true and accurate reflection of patient's current condition. Confidential - Redisclosure prohibited without a patient's written consent.
== END 2017-07-30 17:25 | DRG 641 ==
LOC: 2NNU 15:21 → EMEROO 15:21 → 2NNU 17:45 → SUATTDRO 20:39
PROVIDERS: ADMIT Internal Medicine; ATTEND Internal Medicine